=== PATIENT | female | born 1955 | race Caucasian/White ===

== ENCOUNTER 2023-01-11 02:29 | Emergency (ER) | payer MEDICARE, SELFPAY ==
[2023-01-11 02:33] VITALS: BP 198/94; PULSE 134; RESP 20; TEMP 36.4; O2SAT 100
[2023-01-11] MEDS: NACL 0.9% IRRIG BAG 1,000 ML 1000 ML IRRIGATION ×5 (04:07→06:19)
--- NOTE | 2023-01-11 04:15 | ED.GENADULT ---
HPI - General Adult General Chief complaint: Eye Problems Stated complaint: Super glue to left eye Time Seen by Provider: 01/11/23 02:54 History of Present Illness HPI narrative: This is 67-year-old female presenting to the ED w/ superglue in her eye. patient was Trying to put eyedrops in and grabbed the wrong bottle. Now she is having eye pain and blurry vision. Related Data Allergies Allergy/AdvReac Type Severity Reaction Status Date / Time No Known Allergies Allergy Verified 01/11/23 02:37 [facility] Past Medical History Medical History Diabetes Hypertension Social History Social History (Updated 01/11/23 @ 06:47 by Virgil Lizarraga MD) Social History: occasional alcohol, denies tobacco or drug use Exam Narrative: APPEARANCE: No apparent distress. Head: atraumatic. EYES: left eye has super glue over the eyelashes and inside the eye, there is scleral injection, a ring of dried glue around the edges of the cornea, IOP 20, no evidence of corneal abrasion on fluorescein stain, decreased visual acuity as compared to the right eye NOSE: Atraumatic NECK: Trachea midline RESPIRATORY: No increased rate of breathing CARDIOVASCULAR: RRR, ABDOMINAL: Non-distended MUSCULOSKELETAl: No obvious deformities NEURO: Alert. Moving 4/4 extremities SKIN:: Warm, dry. Normal color PSYCHIATRIC: Normal affect Course Vital Signs Vital signs: Vital Signs Temperature 97.5 F L 01/11/23 02:33 Pulse Rate 134 H 01/11/23 02:33 Respiratory Rate 20 01/11/23 02:33 Blood Pressure 198/94 H 01/11/23 02:33 Pulse Oximetry 100 01/11/23 02:33 Oxygen Delivery Room Air 01/11/23 02:33 Temperature 97.5 F L 01/11/23 02:33 Pulse Rate 134 H 01/11/23 02:33 Respiratory Rate 20 01/11/23 02:33 Blood Pressure 198/94 H 01/11/23 02:33 Pulse Oximetry 100 01/11/23 02:33 Oxygen Delivery Room Air 01/11/23 02:33 Procedures FB Removal Eye Foreign Body #1: Foreign Body Removal Date: 01/11/23 Time Out performed: Yes Location: eye (L) Topical anesthetic used: tetracaine Foreign body: other (superglue) Evidence of corneal penetration: No Technique: eye wash bottle, juni lens, NS and other (tweezers) Procedure performed under: direct visualization with magnification Post-procedure medication: ophthalmic antibiotic Patient tolerated procedure: well Complications: incomplete foreign body removal Medical Decision Making MDM Narrative Medical decision making narrative: -Presentation: 67-year-old female presenting ED after placing super glue in her eye. tetracaine used for anesthetic.eye was flushed flushed with copious amounts of normal saline Via Juni lensuntil it reached a normal pH. -DDX includes but is not limited to: Caustic burn, globe penetration, scleritis, conjunctivitis -Co-morbidities complicating care: hypertension diabetes -Social determinants of health: noncontributory -External Chart Review: none -Hx from independent Sources: none -Discussion of Management/Consultants: Dr. Villasenor - [facility] Opthomology -Independent interpretation of studies: fluorescein stain negative for abrasion, no Unique sign. IOP 20 within normal limit visual acuity is decreased as compared to the right eye Dx tests considered but not ordered: none -Procedures: foreign body removal of glue stuck over the cornea, eyelashes, and sclera -Interventions: 5 L normal saline flush -Shared decision making / Disposition: case was discussed with the [facility] credit counselor. The patient has been given follow-up at 9:30 a.m. on Thursday morning and the [facility] ophthalmology clinic. Patient will be placed on Vigamox, artificial tears and given pain control. Patient is agreeable to this plan -RX: Vigamox, artificial tears, Motrin, norco Vital Signs Vital Signs: Vital Signs Temperature 97.5 F L 01/11/
--- NOTE | 2023-01-11 04:31 | PC.NURSE ---
Second liter of normal saline irrigation started for left eye pH of 7.5
--- NOTE | 2023-01-11 05:02 | PC.NURSE ---
Third liter of normal saline irrigation started in left eye for pH of 8.0.
--- NOTE | 2023-01-11 05:48 | PC.NURSE ---
Fourth liter of normal saline irrigation started in left eye for pH of 7.5
--- NOTE | 2023-01-11 06:19 | PC.NURSE ---
Fifth liter of normal saline irrigation to left eye started for eye pH of 7.5
[2023-01-11 06:49] VITALS: BP 155/110; PULSE 67; RESP 16; O2SAT 100
== END 2023-01-11 07:05 | disposition home or self-care (01) ==
PROVIDERS: Emergency Provider Emergency Medicine
DX: T15.80XA Foreign body in other and multiple parts of external eye, unspecified eye, initial encounter (principal); E11.9 Type 2 diabetes mellitus without complications; I10 Essential (primary) hypertension
CPT/HCPCS: 65220; 99283; J7030

== ENCOUNTER 2024-08-09 17:04 | Emergency (ER) | payer MEDICARE, SELFPAY ==
[2024-08-09 17:10] VITALS: BP 132/68; PULSE 103; RESP 16; TEMP 36.6; O2SAT 100
--- NOTE | 2024-08-09 17:29 | ED.URI ---
HPI - URI/Sore Throat General Chief Complaint: Upper Respiratory Infection Stated Complaint: Sinus Time Seen by Provider: 08/09/24 17:15 Source: patient Mode of arrival: ambulatory Limitations: no limitations History of Present Illness HPI Narrative: Soo is a 69-year-old female patient presenting to the clinic today with complaints of sinus congestion, headache, slight sore throat, and cough. She reports the symptoms have been going on for 4 days. She denies any chest pain or shortness of breath. Is needing a COVID test- is scheduled for a heart catheterization this week MD elicited complaint: sore throat and nasal congestion Related Data Home Medications Medication Instructions Recorded Confirmed apixaban 5 mg tablet (Eliquis) 5 mg PO DAILY 08/09/24 08/09/24 icosapent ethyl 1 gram capsule 1 g PO DAILY 08/09/24 08/09/24 (Vascepa) insulin degludec 200 unit/mL (3 2 unit subcut DAILY 08/09/24 08/09/24 mL) subcutaneous pen (Tresiba FlexTouch U-200 insulin) losartan 100 mg tablet 100 mg PO DAILY 08/09/24 08/09/24 metformin 500 mg tablet,extended 1,000 mg PO BID 08/09/24 08/09/24 release 24 hr metoprolol tartrate 25 mg tablet 25 mg PO DAILY 08/09/24 08/09/24 semaglutide 0.25 mg or 0.5 mg (2 2 mg subcut WE 08/09/24 08/09/24 mg/3 mL) subcutaneous pen injector (Ozempic) Allergies Allergy/AdvReac Type Severity Reaction Status Date / Time lisinopril AdvReac Cough Verified 08/09/24 17:37 Review of Systems Review of Systems: Pertinent positives per HPI. Patient denies any fever, chills, rash, headache, visual changes, dizziness, cough, shortness of breath, chest pain, palpitations, nausea, vomiting, diarrhea, constipation, abdominal pain, or any urinary issues. [facility] Past Medical History Medical History Diabetes Hypertension Social History Social History Social History: occasional alcohol, denies tobacco or drug use Comments At the time of my signature, I reviewed and agree with the nursing past medical, surgical, social, and family history. There is no relevant family history pertinent to the patient complaint. Exam Narrative: General: Well-developed, well nourished, in no apparent distress Head: Normocephalic, atraumatic Eyes: Pupils equally round and reactive to light bilaterally, EOM intact, sclera and conjunctive clear, no discharge, lids normal Ears: TMs intact and congested, ear canals clear, no drainage, grossly hearing normal. Nose: Nares patent, clear nasal discharge, no inflammation, no sinus tenderness. Mouth: Oral pharynx without lesions or masses, good dentition, MMM. Neck: Supple, trachea midline, no enlargement of anterior or posterior cervical nodes, no thyroid masses or goiter palpable. Cardio: Regular rate and rhythm, s1 and s2 normal, no murmur appreciated. Resp: Clear to auscultation bilaterally, no rhonchi, rales, wheezing or rubs Course Course Emergency Course: Portions of this record may have been created with voice recognition software. Level of Care: Express Care Visit Vital Signs Vital signs: Vital Signs Temperature 36.6 C 08/09/24 17:10 Pulse Rate 103 H 08/09/24 17:10 Respiratory Rate 16 08/09/24 17:10 Blood Pressure 132/68 08/09/24 17:10 Pulse Oximetry 100 08/09/24 17:10 Oxygen Delivery Room Air 08/09/24 17:10 Temperature 36.6 C 08/09/24 17:10 Pulse Rate 103 H 08/09/24 17:10 Respiratory Rate 16 08/09/24 17:10 Blood Pressure 132/68 08/09/24 17:10 Pulse Oximetry 100 08/09/24 17:10 Oxygen Delivery Room Air 08/09/24 17:10 Vital signs reviewed MDM - URI/Sore Throat MDM Narrative Medical decision making narrative: At the time of visit patient is resting comfortably on the exam table. Patient appears to be nontoxic. Labs: COVID and influenza testing was performed. COVID testi
[2024-08-09 17:40] LABS: EDCOVIDSCREEN Positive (Negative)
[2024-08-09 17:41] LABS: EDINFLUASCREEN Negative (Negative); EDINFLUBSCREEN Negative (Negative)
== END 2024-08-09 17:40 | disposition home or self-care (01) ==
PROVIDERS: Emergency Provider Nurse Practitioner Family
DX: U07.1 COVID-19 (principal); E11.9 Type 2 diabetes mellitus without complications; I10 Essential (primary) hypertension
CPT/HCPCS: 87635; 87804; 99212; G0463

== ENCOUNTER 2025-05-07 12:11 | Emergency (ER) | payer MEDICARE, SELFPAY ==
--- NOTE | ~2025-05-07 | XR_ITS ---
Right Knee Technique: AP, lateral, and sunrise views were obtained. Clinical History: Injury Findings: There is an acute, oblique fracture the distal third of the femoral shaft, with posterior d isplacement of the distal fracture fragment by approximately 2.3 cm. Fracture is periprosthetic relat ed to the distal femoral component of knee arthroplasty hardware. Soft tissues are unremarkable. No j oint effusion is seen. Impression: Acute oblique fracture of the distal third of the femoral shaft, as detailed above, with periprosthet ic extension related to knee arthroplasty hardware. Reviewed, dictated and finalized at location M. Impression: Acute oblique fracture of the distal third of the femoral shaft, as detailed ab ove, with periprosthetic extension related to knee arthroplasty hardware.
[2025-05-07 11:59] VITALS: BP 169/75; PULSE 65; RESP 18; TEMP 36.4; O2SAT 97
--- NOTE | 2025-05-07 12:15 | ED_ITS ---
HPI - General Adult General Chief complaint: Extremity Injury, Lower Stated complaint: RLE injury History of Present Illness HPI narrative: 70-year-old female presented to the emergency department for evaluation for right knee pain. Patient reports she was walking down steps and missed a step and injured her right knee. Patient denies striking head denies any loss of consciousness. Patient does have history of bilateral knee replacements performed in 2017 at [place]. Related Data Home Medications ?Medication ?Instructions ?Recorded ?Confirmed ?Last Taken ?Type apixaban 5 mg tablet (Eliquis) 5 mg PO DAILY 08/09/24 08/09/24 Unknown History icosapent ethyl 1 gram capsule 1 g PO DAILY 08/09/24 08/09/24 Unknown History (Vascepa) insulin degludec 200 unit/mL (3 2 unit subcut DAILY 08/09/24 08/09/24 Unknown History mL) subcutaneous pen (Tresiba FlexTouch U-200 insulin) losartan 100 mg tablet 100 mg PO DAILY 08/09/24 08/09/24 Unknown History metformin 500 mg tablet,extended 1,000 mg PO BID 08/09/24 08/09/24 Unknown History release 24 hr metoprolol tartrate 25 mg tablet 25 mg PO DAILY 08/09/24 08/09/24 Unknown History semaglutide 0.25 mg or 0.5 mg (2 2 mg subcut WE 08/09/24 08/09/24 Unknown History mg/3 mL) subcutaneous pen injector (Ozempic) Allergies Allergy/AdvReac Type Severity Reaction Status Date / Time lisinopril AdvReac Cough Verified 08/09/24 17:37 Review of Systems 2 Review of Systems: All systems reviewed & are unremarkable except as noted in HPI and below PMFSH Past Medical History Medical History Diabetes Hypertension Social History Social History Social History: occasional alcohol, denies tobacco or drug use Exam 2 Narrative: APPEARANCE: Uncomfortable appearing HEAD: normocephalic, atraumatic. EYES: PERRLA/EOMI, conjunctivae clear. NOSE: Normal no drainage EARS:TMS clear with good light reflex. THROAT: Pharynx clear, no exudate. NECK: Supple. No adenopathy, no masses. RESPIRATORY: Airway patent, respirations nonlabored. Clear to auscultation bilaterally, no rales, rhonchi, wheezing. CARDIOVASCULAR: Regular rate and rhythm without murmurs rubs or gallops. ABDOMINAL: Soft, nontender, nondistended, normal bowel sounds MUSCULOSKELETAL: Tenderness to right knee with limited range of motion, no tenderness to right hip or lower extremity. NEURO: Alert. Cranial nerves II through XII intact. Good gait. Good coordination SKIN: Ecchymosis Course Vital Signs Vital signs: Vital Signs Temperature 97.5 F L 05/07/25 11:59 Pulse Rate 65 05/07/25 11:59 Respiratory Rate 18 05/07/25 11:59 Blood Pressure 169/75 H 05/07/25 11:59 Pulse Oximetry 97 05/07/25 11:59 Oxygen Delivery Room Air 05/07/25 11:59 Temperature 97.5 F L 05/07/25 11:59 Pulse Rate 60 05/07/25 13:16 Respiratory Rate 16 05/07/25 13:16 Blood Pressure 135/75 05/07/25 13:16 Pulse Oximetry 98 05/07/25 13:16 Oxygen Delivery Room Air 05/07/25 11:59 Medical Decision Making MDM Narrative Medical decision making narrative: 70-year-old female presenting to the emergency department for evaluation for right knee pain after having a ground level fall. Patient does have a displaced oblique fracture of the right knee involving her prior prosthetic. Is neurovascularly intact. Patient does have history of AFib is on amiodarone and does take Eliquis. Patient denies striking head denies loss conscious. Patient family were updated on the results of the workup and need for transfer to higher level of care due to the periprosthetic fracture. Patient was placed in a knee immobilizer for knee stability. Differential Diagnosis Differential Diagnosis: Femur fracture, knee contusion, knee dislocation, proximal tib-fib fracture Vital Signs Vital Signs: Vital Signs Temperature 97.5 F L 05/07/25 11:59 Pulse Rate 65 05/07/25 11:59 Respiratory Rate 18 05/07/25 11:59 Blood Pressure 169/75 H 05/07/25 11:59 Pulse Oximetry 97 05/07/25 11:59 Oxygen Delivery Room Air 05/07/25 11:59 Temperature 97.5 F L 05/07/25 11:59 Pulse Rate 60 05/07/25 13:16 Respiratory Rate 16 05/07/25 13:16 Blood Pressure 135/75 05/07/25 13:16 Pulse Oximetry 98 05/07/25 13:16 Oxygen Delivery Room Air 05/07/25 11:59 Lab Data Lab results reviewed: Yes I reviewed the patient's lab results. 05/07/25 12:39 05/07/25 12:39 Labs: Lab Results 05/07/25 05/07/25 Range/Units 12:39 12:40 WBC 8.5 (4.5-10.0) K/mm3 RBC 4.48 (4.2-5.4) M/mm3 Hgb 13.7 (12.0-15.0) g/dL Hct 40.7 (37.0-47.0) % MCV 90.8 (80-100) fl MCH 30.6 (26-34) pg MCHC 33.7 (32-36) g/dl RDW 12.2 (11.5-14.5) % Plt Count 225 (150-375) k/mm3 MPV 9.7 (7.4-10.4) fl Immature Gran % (Auto) 0.4 (0-0.5) % Neut % (Auto) 76.0 H (45.5-73.1) % Lymph % (Auto) 15.0 L (18.3-44.2) % [place] % (Auto) 6.9 (2.6-8.5) % Eos % (Auto) 1.1 (0-4.4) % Baso % (Auto) 0.6 (0.2-1.2) % Lymph # (Auto) 1.28 (0.9-3.2) K/mm3 [place] # (Auto) 0.6 (0.1-0.6) K/mm3 Eos # (Auto) 0.1 (0-0.3) K/mm3 Baso # (Auto) 0.1 (0.0-0.1) K/mm3 Abs Immat Gran (auto) 0.03 (0.00-0.031) K/mm3 Absolute Neuts (auto) 6.5 (1.3-6.7) K/mm3 Absolute Nucleated RBC 0.000 (0.0-0.012) K/mm3 Nucleated RBC % 0.0 (0.0-0.2) % PT 14.7 (11.1-14.7) Seconds INR 1.2 APTT 25.8 (22.3-36.8) Seconds Sodium 140 (137-145) mmol/L Potassium 4.5 (3.4-5.0) mmol/L Chloride 107 (98-107) mmol/L Carbon Dioxide 24 (22-30) mmol/L Anion Gap 9 (4-12) mmol/L BUN 35 H (7-17) mg/dL Creatinine 1.19 H (0.7-1.0) mg/dL Estim Creat Clear Calc 54 ml/min Estimated GFR 45 L (59 - ) Glucose 175 H (65-110) mg/dL Calcium 9.5 (8.4-10.2) mg/dL Total Bilirubin 0.8 (0.2-1.3) mg/dL AST 30 (14-36) U/L ALT 27 (6-35) U/L Alkaline Phosphatase 77 (38-126) U/L Total Protein 7.0 (6.3-8.2) g/dL Albumin 4.1 (3.5-5.1) g/dL Blood Type A Positive Antibody Screen Negative Imaging Data Radiologist's impression: Impressions Knee X-Ray 05/07/25 12:33 Impression: Acute oblique fracture of the distal third of the femoral shaft, as detailed above, with periprosthetic extension related to knee arthroplasty hardware. Critical Care Time Critical Care Time Critical Care Time: Yes Total Critical Care Time: 35 Discharge Plan Discharge Clinical Impression: Cleo-prosthetic femoral shaft fracture Patient Disposition: Acute Care Hospital Condition: Serious Patient Language: Upper Sorbian Prescriptions: No Action losartan 100 mg tablet 100 mg PO DAILY metformin 500 mg tablet extended release 24 hr 1,000 mg PO BID metoprolol tartrate 25 mg tablet 25 mg PO DAILY icosapent ethyl [Vascepa] 1 gram capsule 1 g PO DAILY Eliquis 5 mg tablet 5 mg PO DAILY insulin degludec [Tresiba FlexTouch U-200] 200 unit/mL (3 mL) insulin pen 2 unit SUBCUT DAILY Ozempic 0.25 mg or 0.5 mg (2 mg/3 mL) pen injector 2 mg SUBCUT WE moxifloxacin [Vigamox] 0.5 % drops 1 drp LEFT EYE QID 7 Days Qty: 3 0RF Artificial Tears (cmc) 1 % drops 1 drp EACH EYE QID PRN (Reason: eye irritation) Qty: 15 0RF hydrocodone-acetaminophen 5-325 mg tablet 1 tablet PO Q4H PRN (Reason: pain) Qty: 12 0RF Follow-up/Referrals: PHYSICIAN,SPA EXPERIENCE COORDINATOR [Primary Care Provider] -
--- OUTSIDE RECORDS SUMMARY | 2025-05-07 12:28 | XMS_ITS | Referral Summary ---
Author Organization [facility] Address [address] [place] [address] Care Team Providers Care Help Desk Support Name Role Phone Karely Meyers DO Unavailable [phone] Bella Bowles MD Primary Care Provider [phone] Encounters Date Type Department Care Team Description 04/26/2025 Orders Only [facility] Endocrinology Metabolism and Lipid [address] 2nd [address] [place] [address] Taniya Chisholm RMA Osteopenia, unspecified location (Primary Dx); Osteopenia after menopause 03/19/2025 Results Follow-Up [facility] Endocrinology Metabolism and Lipid [address] 2nd [address] [place] [address] Karely Meyers DO Hemoglobin A1c, Calcium, ionized, Comprehensive metabolic panel, Additional followed-up results: 8 02/27/2025 Telephone [facility] Endocrinology Metabolism and Lipid [address] 2[address] [place] [address] Taniya Chisholm RMA [facility] 02/17/2025 1:26 PM CDT - 02/17/2025 11:59 PM CDT Hospital Encounter [facility] [address] [place] [address] Screening mammogram, encounter for Discharge Disposition: Discharge to home or self care 02/10/2025 8:45 AM CDT Office Visit [facility] Endocrinology Metabolism and Lipid [address] [facility] [address] [place] [address] Karely Meyers DO Type 2 diabetes mellitus without complication, without long-term current use of insulin (HCC) (Primary Dx); Mixed hyperlipidemia; Osteopenia, unspecified location; Multinodular goiter; Essential hypertension; Other proteinuria; Neuropathy; Atrial fibrillation, unspecified type (HCC); Class 1 obesity due to excess calories with serious comorbidity and body mass index (BMI) of 34.0 to 34.9 in adult; Pheochromocytoma of left adrenal gland from Last 3 Months Allergies Active Allergy Reactions Criticality Noted Date Comments Lisinopril Itching,Swelling,Ang ioed elin High 03/26/2022 Swelling to face and eyes Other Itching Low 09/09/2024 Had itching following the skin prep used for cardiac cath. Medications cholecalciferol (VITAMIN D-3) 2,000 unit tabletIndication s:Prevention of Vitamin D Deficiency Take 1 tablet (2,000 Units total) by mouth 2 (two) times a day Active multivitamin tabletIndication s:Vitamin Deficiency Prevention Take 1 tablet by mouth 2 (two) times a day Active vitamin B complex capsuleIndicatio ns:Vitamin Deficiency Prevention Take 1 capsule by mouth every morning Active fluticasone propionate (FLONASE) 50 mcg/actuation nasal spray Administer 2 sprays into each nostril daily 16 g 5 1 Active Additional Information Patient not taking.Informant: Self, Reported on 02/10/2025 metFORMIN XR (GLUCOPHAGE XR) 500 mg 24 hr tablet TAKE 2 TABLETS(1000 MG) BY MOUTH TWICE DAILY 180 tablet 1 3 Active Additional Information Patient taking differently: 500 mg oral Daily with breakfast, Informant: Self, Reported on 02/10/2025 insulin degludec (TRESIBA) 200 unit/mL (3 mL) pen for injection Take 20 units every evening + 2 units of priming daily 9 mL 5 4 Active alpha lipoic acid 600 mg capsuleIndicatio ns:supplement Take 1 capsule (600 mg total) by mouth nightly Active blood-glucose sensor (Dexcom G7 Sensor) device continuous Active furosemide (LASIX) 20 mg tablet Take 1 tablet (20 mg total) by mouth daily 30 tablet 11 5 12/01/19 26 Active amiodarone (PACERONE) 200 mg tabletIndication s:Cardioversion of Atrial Fibrillation Take 1 tablet (200 mg total) by mouth daily 30 tablet 11 5 12/19/19 26 Active Farxiga 10 mg tablet Take 1 tablet (10 mg total) by mouth daily 30 tablet 11 5 Active losartan (COZAAR) 100 mg tablet Take 1 tablet (100 mg total) by mouth daily 90 tablet 1 5 01/02/20 26 Active blood glucose diagnostic ([employer] test strips) strip Check BS 3x per day 300 strip 3 5 Active icosapent ethyL (VASCEPA) 1 gram capsule Take 2 capsules (2 g total) by mouth 2 (two) times a day 360 capsule 1 5 Active apixaban (Eliquis) 5 mg tablet TAKE 1 TABLET(5 MG) BY MOUTH TWICE DAILY 180 tablet 3 5 Active evolocumab (Repatha SureClick) 140 mg/mL pen injector Inject 1 mL (140 mg total) under the skin every 2 (two) weeks 2 mL 5 5 Active Active Problems Problem Noted Date Diagnosed Date Heart failure with preserved ejection fraction 0 12/15/2024 Assessment & Plan (12/17/2024 11:23 AM NURSE MIDWIFE): HFrEF, per last TTE (06/2024), LVEF 50%, mild MR, mild to mod TR. -Hemodynamically stable, appears euvolemic on exam -Continue home Lasix 20 mg PO daily -Continue Farxiga 10 mg daily -Would benefit from addition of spironolactone which can be added outpatient -Strict I & Os, daily standing weights, 2G sodium diet, telemetry monitoring Assessment & Plan (12/16/2024 11:59 AM NURSE MIDWIFE): HFrEF, per last TTE (06/2024), LVEF 50%, mild MR, mild to mod TR. -appears euvolemic on exam -continue home Lasix 20 mg PO daily - consider SGLT2i, will crespo check -tele monitoring, strict I&Os, daily weights, 2 g Na diet Assessment & Plan (12/15/2024 11:03 AM NURSE MIDWIFE): HFrEF, per last TTE (06/2024), LVEF 50%, mild MR, mild to mod TR. -appears euvolemic on exam -continue home Lasix 20 mg PO daily -tele monitoring, strict I&Os, daily weights, 2 g Na diet A-fib 12/14/2024 Assessment & Plan (12/17/2024 11:25 AM NURSE MIDWIFE): History of A. Fib on Eliquis. Admitted for amiodarone load. -Admitting ECG SR with well controlled ventricular rates (50s), QTC 431 ms -Discontinued home metoprolol 25 mg BID -Started on amiodarone (first dose 12/14 PM)-pt has been in sinus rhythm until this morning -Currently in A. Fib, HR 90s on telemetry and AM EKG shows A. Fib, HR 83bpm, QTc 480ms -Continue Amiodarone 400 mg TID -Daily EKGs -Planning for DCCV on Thursday -Continue Eliquis 5 BID (no interrupted doses so will not need DANNI) -Continuous telemetry monitoring -Keep K > 4.0 & Mg > 2.0, replete as indicated Assessment & Plan (12/16/2024 12:00 PM NURSE MIDWIFE): Discussed the risks and benefits of amiodarone including toxicity with long-term use, as well as alternative modalities of rhythm control including catheter ablation and other anti rhythmic medications. She is agreeable to starting amiodarone which is a reasonable choice. - admitting ECG SR with well controlled ventricular rates (50s), QTC 431 ms - remains in SR with HR in upper 50s - continue Amiodarone 400 mg t.i.d. while inpatient, QTC remains within acceptable range - Continue Eliquis 5 b.i.d. - Discontinue metoprolol 25 b.i.d. - TSH, LFTs for baseline - ECG daily for 1st 3 days - strict tele monitoring Assessment & Plan (12/15/2024 11:05 AM NURSE MIDWIFE): Discussed the risks and benefits of amiodarone including toxicity with long-term use, as well as alternative modalities of rhythm control including catheter ablation and other anti rhythmic medications. She is agreeable to starting amiodarone which is a reasonable choice. - admitting ECG SR with well controlled ventricular rates (50s), QTC 431 ms - start Amiodarone 400 mg t.i.d. while inpatient - Continue Eliquis 5 b.i.d. - Discontinue metoprolol 25 b.i.d. - TSH, LFTs for baseline - ECG daily for 1st 3 days - strict tele monitoring Atrial fibrillation 09/27/2024 Encounter for follow-up in outpatient clinic Coronary artery disease invo lving [place] coronary artery of [place] heart without angina pectoris 07/23/2024 Abnormal stress test 06/30/2024 Left thyroid nodule 06/20/2024 Viral upper respiratory tract infection 05/05/20 Assessment & Plan (05/05/2023 10:51 PM CDT): Suspect she has a viral upper respiratory and enteritis infection as the etiology of her sx. Too late in course to test for COVID at this point. EKG and trop in the ED normal and given resolution of sx and her excellent exercise tolerance I do not think there is anything cardiac going on but discussed red flag sx in detail today. - Reassured her that her sx will cont to improve. - For diarrhea, pause metformin x1 week, cont loperamide prn, then resume metformin provided diarrhea has improved. Eye swelling 03/26/2022 Assessment & Plan (05/25/2022 10:23 PM CDT): After reviewing her photos, I am not convinced that this is angioedema, but to err on the side of safety we will stop TONY and substitute ARB. Lisinopril added to allergy list. She will call me KRISTI with any recurrent sx. Encounter for Medicare annual wellness exam 12/2019 Assessment & Plan (08/15/2022 9:26 AM CDT): - - Depression screen: PHQ Screening PHQ-2 Total Score (If total score is 3 or more points, staff should administer the PHQ-9): 0 - A1c: see DM - Lipids: see HLD - DEXA: normal 2020 - Colon cancer: normal path 02/2021,consider f/u 2030 - Mammogram: normal 08/2021 - Pap: not needed, s/p hysterectomy - Lung cancer: not needed - Hepatitis C: negative - HIV: not needed - Influenza: give today - Td/Tdap: UTD 2013 - Shingrix UTD - Pneumovax UTD 2017 - Prevnar: she would like to defer, discussed benefits/ limitations - COVID: UTD Routine health maintenance objectives discussed, including healthy diet, physical activity, and adequate calcium and vitamin D intake. Orders placed for any outstanding screening studies as noted. Physical exam performed as above.Routine annual labs, if needed, have been ordered and will be reviewed with patient when results available. Assessment & Plan (07/25/2021 10:55 AM CDT): - - Depression screen: PHQ Screening PHQ-2 Total Score (If total score is 3 or more points, staff should administer the PHQ-9): 0 PHQ-9 Total Score: 1 - A1c: see DM - Lipids: see HLD - DEXA: normal 2017, consider f/u in 2022 - Colon cancer: normal path 02/2021,consider f/u 2030 - Mammogram: normal 07/2020, due for f/u later this month - Pap: not needed, s/p hysterectomy - Lung cancer: not needed - Hepatitis C: negative - HIV: not needed - Influenza: rec - Td/Tdap: UTD 2013 - Shingrix UTD - Pneumovax UTD 2017 - Prevnar: she would like to defer, discussed benefits/ limitations - COVID: UTD Routine health maintenance objectives discussed, including healthy diet, physical activity, and adequate calcium and vitamin D intake. Orders placed for any outstanding screening studies as noted. Physical exam performed as above.Routine annual labs, if needed, have been ordered and will be reviewed with patient when results available. Assessment & Plan (07/25/2020 10:44 AM CDT): - - Depression screen: PHQ Screening PHQ-2 Total Score (If total score is 3 or more points, staff should administer the PHQ-9): 0 - A1c: see DM - Lipids: see HLD - DEXA: normal 2017, consider f/u in 2022 - Colon cancer: Last 08/2013, normal but rec 7 year f/u. Refer today - Mammogram: Due 07/2020 - Pap: not needed, s/p hysterectomy - Lung cancer: not needed - Hepatitis C: negative - HIV: not needed - Influenza: give today - Td/Tdap: UTD 2013 - Shingrix UTD - Pneumovax UTD 2017 - Prevnar: she would like to defer, discussed benefits/ limitations Routine health maintenance objectives discussed, including healthy diet, physical activity, and adequate calcium and vitamin D intake. Orders placed for any outstanding screening studies as noted. Physical exam performed as above.Routine annual labs, if needed, have been ordered and will be reviewed with patient when results available. Tinea pedis of both feet 07/25/2020 Assessment & Plan (07/25/2020 1:26 PM CDT): Terbinafine topical bid Counseling regarding advance care planning and goals of care 07/25/2020 Assessment & Plan (07/25/2020 1:27 PM CDT): Discussed for 5 min importance of POA and living will and what to consider when completing these documents. Chronic MARIMAR (middle ear effusion), left 07/25/20 20 Assessment & Plan (07/25/2021 10:50 PM CDT): Trial flonase 2 sprays each nostril every day. If no improvement, she will f/u with ENT Assessment & Plan (07/25/2020 1:34 PM CDT): No sx c/w acute otitis media. Intact TM - Rec Zyrtec x2 weeks. If no improvement, f/u with ENT Type 2 diabetes mellitus wit hout complication, without long-term current use of insulin 07/25/2020 Assessment & Plan (12/17/2024 11:24 AM NURSE MIDWIFE): Admission HgbA1C 7.3 -Continue Lantus 16 units in the evening plus LD SSI -Continue Farxiga 10 mg daily -Acucchecks -Carb consistent diet Assessment & Plan (12/16/2024 12:00 PM NURSE MIDWIFE): -On admission, HgbA1C 7.3 -Continue Lantus 16 units in the evening plus low-dose SSI -glucose check AC + HS -consider SGLT2i, will crespo check Assessment & Plan (12/15/2024 10:59 AM NURSE MIDWIFE): -On admission, HgbA1C 7.3 -Continue Lantus 16 units in the evening plus low-dose SSI -glucose check AC + HS Assessment & Plan (05/05/2023 10:52 PM CDT): Control is worsening. Medication regimen: cont Metformin XR 500mg bid given recent illness, but consider inc vs. Addition of GLP -1 at next appt. HbA1c Lab Results Component Value Date HGBA1C 7.0 05/05/2023 Microalbumin/Creatinine Lab Results Component Value Date MICROALBUR 16.0 12/15/2022 ACEi/ARB prescribed yes Statin prescribed no intolerant due to transaminitis Foot/extremity exam performed 07/2022, protective sensation intact. Retinopathy screening performed UTD Pt counseled regarding diet, physical activity, medication adherence Assessment & Plan (08/16/2022 9:12 PM CDT): Control is stable Medication regimen: Metformin XR 500mg bid HbA1c Lab Results Component Value Date HGBA1C 8.2 (H) 08/15/2022 Microalbumin/Creatinine Lab Results Component Value Date MICROALBUR <3.0 11/15/2019 ACEi/ARB prescribed yes Statin prescribed no intolerant due to transaminitis Foot/extremity exam performed 07/2022, protective sensation intact. Retinopathy screening performed UTD Pt counseled regarding diet, physical activity, medication adherence Assessment & Plan (07/25/2021 10:48 PM CDT): Control is stable Medication regimen: Metformin XR 500mg bid HbA1c Lab Results Component Value Date HGBA1C 6.6% 07/15/2021 Microalbumin/Creatinine Lab Results Component Value Date MICROALBUR <3.0 11/15/2019 ACEi/ARB prescribed yes Statin prescribed no intolerant due to transaminitis Foot/extremity exam performed 07/2021, protective sensation intact. Retinopathy screening performed due, 07/2020 Pt counseled regarding diet, physical activity, medication adherence Assessment & Plan (07/25/2020 1:36 PM CDT): Control is stable Medication regimen: Metformin XR 500mg bid HbA1c Lab Results Component Value Date HGBA1C 6.3 06/26/2020 Microalbumin/Creatinine Lab Results Component Value Date MICROALBUR <3.0 11/15/2019 ACEi/ARB prescribed yes Statin prescribed no intolerant due to transaminitis Foot/extremity exam performed 07/2020, protective sensation intact. Retinopathy screening performed due, 07/2020 Pt counseled regarding diet, physical activity, medication adherence Essential hypertension 07/25/2020 Assessment & Plan (12/17/2024 11:21 AM NURSE MIDWIFE): -Continue losartan 100 daily Assessment & Plan (12/16/2024 11:59 AM NURSE MIDWIFE): -continue Cozaar 100 daily Assessment & Plan (12/15/2024 10:57 AM NURSE MIDWIFE): -continue Cozaar 100 daily Assessment & Plan (08/16/2022 9:14 PM CDT): BP at goal <130/80 at home. - Current medication regimen: cont losartan 25mg every day - cont home BP monitoring - Counseled regarding lifestyle measures to control HTN including low salt diet rich in fruits and vegetables, limiting alcohol use, regular exercise, and weight loss of 5-10% if pt is obese. Assessment & Plan (05/25/2022 10:24 PM CDT): BP above goal <130/80. - Current medication regimen: start losartan 25mg every day - asked her to send home blood pressures - Counseled regarding lifestyle measures to control HTN including low salt diet rich in fruits and vegetables, limiting alcohol use, regular exercise, and weight loss of 5-10% if pt is obese. Assessment & Plan (07/25/2021 10:42 PM CDT): BP at goal <130/80. - Current medication regimen: amlodipine 5mg every day, lisinopril 5mg every day - Counseled regarding lifestyle measures to control HTN including low salt diet rich in fruits and vegetables, limiting alcohol use, regular exercise, and weight loss of 5-10% if pt is obese. Assessment & Plan (07/25/2020 1:36 PM CDT): BP at goal <130/80. - Current medication regimen: amlodipine 5mg every day, lisinopril 5mg every day - Counseled regarding lifestyle measures to control HTN including low salt diet rich in fruits and vegetables, limiting alcohol use, regular exercise, and weight loss of 5-10% if pt is obese. Mixed hyperlipidemia 07/25/2020 Assessment & Plan (08/16/2022 9:14 PM CDT): Lab Results Component Value Date CHOL 121 01/14/2022 CHOL 112 07/15/2021 CHOL 121 03/18/2021 Lab Results Component Value Date HDL 46 08/15/2022 HDL 43 01/14/2022 HDL 41 07/15/2021 Lab Results Component Value Date LDLCALC 50 08/15/2022 LDLCALC 44 01/14/2022 LDLCALC 31 07/15/2021 LDL 67 01/28/2017 LDL 97 10/26/2014 LDL 65 03/23/2014 LDLC 53 03/22/2020 LDLC 39 11/15/2019 LDLP 722 03/22/2020 LDLP 563 11/15/2019 Lab Results Component Value Date TRIG 266 (H) 08/15/2022 TRIG 170 (H) 01/14/2022 TRIG 200 (H) 07/15/2021 Intolerant of statins due to transaminitis. - Cont Cait Perdomo. - Counseled regarding diet changes to lower TGs Assessment & Plan (07/25/2021 10:43 PM CDT): Lab Results Component Value Date CHOL 112 07/15/2021 CHOL 121 03/18/2021 CHOL 113 11/12/2020 Lab Results Component Value Date HDL 41 07/15/2021 HDL 46 03/18/2021 HDL 46 11/12/2020 Lab Results Component Value Date LDLCALC 31 07/15/2021 LDLCALC 43 03/18/2021 LDLCALC 34 11/12/2020 LDL 67 01/28/2017 LDL 97 10/26/2014 LDL 65 03/23/2014 LDLC 53 03/22/2020 LDLC 39 11/15/2019 LDLP 722 03/22/2020 LDLP 563 11/15/2019 Lab Results Component Value Date TRIG 200 (H) 07/15/2021 TRIG 158 (H) 03/18/2021 TRIG 164 (H) 11/12/2020 Intolerant of statins due to transaminitis. - Cont Cait Perdomo. - Counseled regarding diet changes to lower TGs Assessment & Plan (07/25/2020 1:37 PM CDT): Last LDL at goal. Intolerant of statins due to transaminitis. - Cont Cait Perdomo Multiple thyroid nodules 07/25/2020 Assessment & Plan (08/16/2022 9:15 PM CDT): Euthyroid. Right thyroid nodule stable. Left thyroid nodule has increased in size by 33%. FNA repeated in 06/2020 and it was benign --> repeat u/s done showed increase in size in left thyroid nodule. She underwent FNA with benign cytology. - No further f/u needed Assessment & Plan (07/25/2021 10:48 PM CDT): Euthyroid. Right thyroid nodule stable. Left thyroid nodule has increased in size by 33%. FNA repeated in 06/2020 and it was benign --> repeat u/s done showed increase in size in left thyroid nodule. She underwent FNA yesterday and results are pending. - F/u with Dr. Meyers, next steps pending cytology Assessment & Plan (07/25/2020 1:39 PM CDT): Euthyroid. Last US with increase in size of L lower nodule, FNA 07/04 benign. - F/u with Dr. Meyers - Thyroid US in 1 year Resolved Problems Problem Noted Date Diagnosed Date Resolved Date Alcohol screening 07/25/2020 07/25/2020 Overview (07/25/2020): negative Immunizations Immunization Administration Dates Next Due Influenza, Quadrivalent, Hig h Dose, Preservative Free, Intrr 08/15/2022 Influenza, Quadrivalent, Spl it, Intramuscular 09/04/2016,09/04/2016 Influenza, Quadrivalent, Spl it, Preservative Free, Intramuscular 08/19/2018,08/19/2018,08/27/2017,08/27 Influenza, Trivalent, High D ose, Split, Preservative Free, Intramuscular 07/25/2020 Influenza, Trivalent, IM (MDV) 08/25/2013,2012 Influenza, Trivalent, Preser vative Free, Intramuscular 08/23/2005 Influenza, Unspecified 09/23/2024 Pfizer SARS-CoV-2 Monovalent Vaccination (12+ Yrs) PURPLE 06/23/2022,02/01/2021,01/11/2021,01/11 Tdap 03/23/2014 Social History Tobacco Use Types Packs/Day Years Used Date Smoking Tobacco: Former Cigarettes 0.3 5 1 972 - 1976 Passive Smoke Exposure: Past Smokeless Tobacco: Never Tobacco Cessation:Counseling Given: Not Answered Alcohol Use Standard Drinks/Week Comments Not Currently 0 (1 standard drink = 0.6 oz pur e alcohol) special occasions only [employer] Utilities Answer Date Recorded In the past 12 months has [employer], gas, oil, or water [employer] threatened to shut off services in your home? No 12/19/2024 Social Connection and Isolat ion Panel [NHANES] Answer Date Recorded In a typical week, how many times do you talk on the phone with family, friends, or neighbors? More than three times a week 12/19/2024 How often do you get togethe r with friends or relatives? Twice a week 12/19/2024 How often do you attend chur ch or latter day services? Never 12/19/2024 Do you belong to any clubs o r organizations such as temple groups, unions, fraternal or athletic groups, or school groups? No 12/19/2024 How often do you attend meet ings of the clubs or organizations you belong to? Never 12/19/2024 Are you , , di vorced, , never , or living with a partner? Never 12/19/2024 AUDIT-C Answer Date Recorded Q1: How often do you have a drink containing alc ohol? Monthly or less 10/27/2024 Q2: How many drinks containi ng alcohol do you have on a typical day when you are drinking? 1 or 2 10/27/2024 Q3: How often do you have si x or more drinks on one occasion? Never 10/27/2024 Overall Financial Resource Strain (CARDIA) Answe r Date Recorded How hard is it for you to pa y for the very basics like food, housing, medical care, and heating? Not very hard 12/19/2024 PHQ-2 Answer Date Recorded PHQ-2 Total Score (If total score is 3 or more points, staff should administer the PHQ-9) 0 08/15/2022 Hunger Vital Sign Answer Date Recorded Within the past 12 months, y ou worried that your food would run out before you got the money to buy more. Never true 12/19/19 25 Within the past 12 months, t he food you bought just didn't last and you didn't have money to get more. Never true 12/19/2024 PRAPARE - Transportation Answer Date Re corded In the past 12 months, has l ack of transportation kept you from medical appointments or from getting medications? No 11/24 In the past 12 months, has l ack of transportation kept you from meetings, work, or from getting things needed for daily living? No 12/19/2024 Housing Stability Vital Sign Answer Rosalio e Recorded In the last 12 months, was t here a time when you were not able to pay the mortgage or rent on time? No 12/19/2024 In the past 12 months, how m any times have you moved where you were living? 0 12/19/2024 At any time in the past 12 m [facility], were you homeless or living in a jail (including now)? No 12/19/2024 Personal Safety Answer Date Recorded Have you ever been in or are you currently in a harmful physical or emotional relationship or is someone making you feel afraid or unsafe? Denies 12/14/2024 Comments No Sex and Gender Information Value Date Recorded Sex Assigned at Not on file Legal Sex Female 2:14 AM NURSE MIDWIFE Gender Identity Not on file Sexual Orientation Not on file Last Filed Vital Signs Vital Sign Reading Time Taken Comments Blood Pressure 130/82 02/10/2025 8:44 AM CDT Pulse 61 02/10/2025 8:44 AM CDT Temperature 36.2 C (97.2 F) 02/10/2025 8:44 AM CDT Respiratory Rate 17 12/18/2024 7:36 AM NURSE MIDWIFE Oxygen Saturation 98% 02/10/2025 8:44 AM CDT Inhaled Oxygen Concentration - - Weight 112.5 kg (248 lb) 02/10/2025 8:44 AM CDT Height 177.8 cm (5' 10) 02/10/2025 8:44 AM CDT Body Mass Index 35.58 02/10/2025 8:44 AM CDT Plan of Treatment Not on file Procedures Procedure Name Priority Date/Time Associated Diagnosis Comments METANEPHRINES, FRACT, FREE, LC/MS/MS, PLASMA Routine 03/17/2025 9:44 AM CDT Pheochromocytoma of left adrenal gland HEMOGLOBIN A1C Routine 03/17/2025 9:43 AM CDT Type 2 diabetes mellitus without complication, without long-term current use of insulin (HCC) ALBUMIN CREATININE RATIO, URINE Routine 03/17/2025 9:41 AM CDT Type 2 diabetes mellitus without complication, without long-term current use of insulin (HCC) LIPOPROTEIN NMR Routine 03/17/2025 9:41 AM CDT Mixed hyperlipidemia PTH Routine 03/17/2025 9:41 AM CDT Osteopenia, unspecified location VITAMIN B12 Routine 03/17/2025 9:41 AM CDT Type 2 diabetes mellitus without complication, without long-term current use of insulin (HCC) VITAMIN D 25 HYDROXY Routine 03/17/2025 9:41 AM CDT Osteopenia, unspecified location TSH Routine 03/17/2025 9:41 AM CDT Multinodular goiter T4, FREE Routine 03/17/2025 9:41 AM CDT Multinodular goiter COMPREHENSIVE METABOLIC PANEL Routine 03/17/2025 9:41 AM CDT Type 2 diabetes mellitus without complication, without long-term current use of insulin (HCC) Mixed hyperlipidemia CALCIUM, IONIZED Routine 03/17/2025 9:41 AM CDT Osteopenia, unspecified location SCREENING MAMMOGRAM BILATERAL W HENRY Schedule Routine, Read Routine (OP Routine) 02/17/2025 1:39 PM CDT Screening mammogram, encounter for POCT GLUCOSE [id number] Routine 02/10/2025 8: 51 AM CDT Type 2 diabetes mellitus without complication, without long-term current use of insulin (HCC) LIPID PANEL Routine 12/15/2024 4:08 AM NURSE MIDWIFE HEPATITIS C ANTIBODY Routine 09/01/2024 10:30 AM CDT Hyperbilirubinemia DEXA AXIAL SKELETON BONE DENSITY 1 OR MORE SITES Schedule Routine, Read Routine (OP Routine) 04/24/2023 8:23 AM CDT Osteopenia, unspecified location COLONOSCOPY 03/11/2021 10:50 AM CDT from Last 3 Months or Most Recently Relevant to Health Maintenance Results * METANEPHRINES, FRACT, FREE, LC/MS/MS, PLASMA (03/17/2025 9:44 AM CDT) Normetanephrine , Pl 53.9 0.0 - 285.2 pg/mL [facility] - 01 Metanephrine, Pl <25.0 0.0 - 88.0 pg/mL [facility] - 01 Plasma 03/17/2025 9:44 AM CDT 03/17/2025 Narrative [facility] - 03/27/2025 7:08 AM CDT Test(s) 687319-Hkxznayabrddjpk, Pl; 617247-Gmipvkwqotha, Pl was developed and its performance characteristics determined by [facility]. It has not been cleared or approved by the Food and Drug Administration. Performed at: [address] [id number] Registered Midwife: Sandy Hogan MD, Phone: [phone] [facility] [employer] LAB BLOOD ORDERABLES Fi nal Result Performing Organization Address [facility] de Phone Number [facility] * (ABNORMAL) Hemoglobin A1c (03/17/2025 9:43 AM CDT) Hgb A1C 6.2(H) 4.8 - 5.6 % [facility] - Comment: Prediabetes: 5.7 - 6.4 Diabetes: >6.4 Glycemic control for adults with diabetes: <7.0 Blood 03/17/2025 9:43 AM CDT 03/17/2025 Narrative [facility] - 03/18/2025 7:09 AM CDT Performed at: [address] [id number] Registered Midwife: Devin Salazar PhD, Phone: [phone] Karely Meyers LAB BLOOD ORDERABLES Fi nal Result Performing Organization Address [facility] de Phone Number [facility] * Calcium, ionized (03/17/2025 9:41 AM CDT) Calcium, Ionized, Serum 5.1 4.5 - 5.6 mg/dL [facility] - Blood 03/17/2025 9:41 AM CDT 03/17/2025 Narrative [facility] - 03/18/2025 3:09 PM CDT Performed at: [address] [place] [id number] Registered Midwife: Devin Salazar PhD, Phone: [phone] Karely Meyers DO LAB BLOOD ORDERABLES Fi nal Result Performing Organization Address [facility] Co de Phone Number [facility] - * Albumin Creatinine Ratio, Urine (03/17/2025 9:41 AM CDT) Creatinine ur 14.5 Not Estab. mg/dL [facility] - 01 Microalbumin, ur <3.0 Not Estab. ug/mL [facility] - 01 Microalbumin/cre at ratio <21 0 - 29 mg/g creat [facility] - 01 Comment: Normal: 0 - 29 Moderately increased: 30 - 300 Severely increased: >300 Urine 03/17/2025 9:41 AM CDT 03/17/2025 Narrative [facility] - 03/18/2025 9:10 AM CDT Performed at: [address] [place] [address] Registered Midwife: Devin Salazar PhD, Phone: [phone] Karely Meyers LAB URINE ORDERABLES Fi nal Result Performing Organization Address [facility] de Phone Number [facility] - * (ABNORMAL) Lipoprotein NMR (03/17/2025 9:41 AM CDT) LDL-P 1,141(H) <1,000 nmol/L [facility] - 01 Comment: Low < 1000 Moderate 1000 - 1299 Borderline-High 1300 - 1599 High 1600 - 2000 Very High > 2000 LDL-C (NIH Calc) 78 0 - 99 mg/dL [facility] - 01 Comment: Optimal < 100 Above optimal 100 - 129 Borderline 130 - 159 High 160 - 189 Very high > 189 HDL-C 48 >39 mg/dL [facility] - 01 Triglycerides 132 0 - 149 mg/dL [facility] - 01 Cholesterol, Total 149 100 - 199 mg/dL [facility] - 01 HDL, total particle 34.3 >=30.5 umol/L [facility] - 01 Small LDL-P 583(H) <=527 nmol/L [facility] - 01 LDL Size 20.9 >20.5 nm [facility] - 01 Comment: INTERPRETATIVE INFORMATION PARTICLE CONCENTRATION AND SIZE <--Lower CVD Risk Higher CVD Risk--> LDL AND HDL PARTICLES Percentile in Reference Population HDL-P (total) High 75th 50th 25th Low >34.9 34.9 30.5 26.7 <26.7 Small LDL-P Low 25th 50th 75th High <117 117 527 839 >839 LDL Size <-Large (Pattern A)-> <-Small (Pattern B)-> 23.0 20.6 20.5 19.0 Small LDL-P and LDL Size are associated with CVD risk, but not after LDL-P is taken into account. LP-IR Score 44 <=45 [facility] - 01 Comment: INSULIN RESISTANCE MARKER <--Insulin Sensitive Insulin Resistant--> Percentile in Reference Population Insulin Resistance Score LP-IR Score Low 25th 50th 75th High <27 27 45 63 >63 LP-IR Score is inaccurate if patient is non-fasting. The LP-IR score is a laboratory developed index that has been associated with insulin resistance and diabetes risk and should be used as one component of a physician's clinical assessment. Blood 03/17/2025 9:41 AM CDT 03/17/2025 Narrative [facility] - 03/19/2025 3:08 PM CDT Test(s) [id number]-JJB-F; 939563-LTP-I; 389121-Bwlzlbtiawsqt; 975404- Cholesterol, Total; 925657-THV-R (Total); 916939-Auguw LDL-P; 049770- LDL Size; 995498-BP-AG Score was developed and its performance characteristics determined by [facility]. It has not been cleared or approved by the Food and Drug Administration. Performed at: [facility] [id number] Registered Midwife: Sandy Hogan MD, Phone: [phone] Karely Meyers DO LAB BLOOD ORDERABLES Fi nal Result Performing Organization Address [facility] Co de Phone Number [facility]DCRP - * Vitamin D 25 hydroxy (03/17/2025 9:41 AM CDT) Vitamin D, 25-Hydroxy 45.8 30.0 - 100.0 ng/mL [facility] - 01 Comment: Vitamin D deficiency has been defined by the [place] of Medicine and an Endocrine Society practice guideline as a level of serum 25-OH vitamin D less than 20 ng/mL (1,2). The Endocrine Society went on to further define vitamin D insufficiency as a level between 21 and 29 ng/mL (2). 1. IOM ([place] of Medicine). 2010. Dietary reference intakes for calcium and D. [place]: The National Academies Press. 2. Irma MF, Demetrio CARPIO, Swetha SCHAEFER, et al. Evaluation, treatment, and prevention of vitamin D deficiency: an Endocrine Society clinical practice guideline. JCEM. 2010; 96(7):1911-30. Blood 03/17/2025 9:41 AM CDT 03/17/2025 Narrative [facility] - 03/18/2025 7:09 AM CDT Performed at: [facility] [id number] Registered Midwife: Devin Salazar PhD, Phone: [phone] Karely Anapiyush Meyers DO LAB BLOOD ORDERABLES Fi nal Result Performing Organization Address City/[facility]/ZIP Co de Phone Number [facility] - 01 * TSH (03/17/2025 9:41 AM CDT) TSH 3.070 0.450 - 4.500 uIU/mL [facility] - 01 Blood 03/17/2025 9:41 AM CDT 03/17/2025 Narrative [facility] - 03/18/2025 7:09 AM CDT Performed at: [address] [id number] Registered Midwife: Devin Salazar PhD, Phone: [phone] Karely Meyers DO LAB BLOOD ORDERABLES Fi nal Result Performing Organization Address [facility] de Phone Number [facility] - 01 * T4, free (03/17/2025 9:41 AM CDT) T4,Free(Direct) 1.39 0.82 - 1.77 ng/dL [facility] - 01 Blood 03/17/2025 9:41 AM CDT 03/17/2025 Narrative [facility] - 03/18/2025 7:09 AM CDT Performed at: [address] [id number] Registered Midwife: Devin Salazar PhD, Phone: [phone] Karely Meyers DO LAB BLOOD ORDERABLES Fi nal Result Performing Organization Address [facility] Phone Number [facility] - 01 * PTH (03/17/2025 9:41 AM CDT) Pathologist [facility] PTH Intact 19 15 - 65 pg/mL [facility] 02 Blood 03/17/2025 9:41 AM CDT 03/17/2025 Narrative [facility] - 03/19/2025 3:08 PM CDT Performed at: [address] [id number] Registered Midwife: Devin Salazar PhD, Phone: [phone] us Karely Meyers DO LAB BLOOD ORDERABLES Fi nal Result Performing Organization Address [facility] Co de Phone Number [facility] PHYLLIS 02 * Vitamin B12 (03/17/2025 9:41 AM CDT) Pathologist [facility] Vitamin B12 700 232 - 1,245 pg/mL [facility] - 01 Blood 03/17/2025 9:41 AM CDT 03/17/2025 Narrative [facility] - 03/18/2025 7:09 AM CDT Performed at: [address] [place] [id number] Registered Midwife: Devin Salazar PhD, Phone: [phone] us Karely Meyers DO LAB BLOOD ORDERABLES Fi nal Result [facility] - 01 * (ABNORMAL) Comprehensive metabolic panel (03/17/2025 9:41 AM CDT) Pathologist [facility] Glucose 114(H) 70 - 99 mg/dL [facility] - 01 BUN 34(H) 8 - 27 mg/dL [facility] - 01 Creatinine, Serum 1.32(H) 0.57 - 1.00 mg/dL [facility] - 01 eGFR 43(L) >59 mL/min/1.7 3 [facility] - 01 BUN/creat ratio 26 12 - 28 [facility] - 01 Sodium 138 134 - 144 mmol/L [facility] - 01 Potassium, sr 4.9 3.5 - 5.2 mmol/L [facility] - 01 Chloride 100 96 - 106 mmol/L [facility] - 01 CO2 23 20 - 29 mmol/L [facility] - 01 Calcium 9.9 8.7 - 10.3 mg/dL [facility] - 01 Protein, sr 6.8 6.0 - 8.5 g/dL [facility] - 01 Albumin 4.3 3.8 - 4.8 g/dL [facility] - 01 Globulin, Total 2.5 1.5 - 4.5 g/dL [facility] - 01 Bilirubin, Total 0.8 0.0 - 1.2 mg/dL [facility] - 01 Alk phos 84 44 - 121 IU/L [facility] - 01 AST 24 0 - 40 IU/L [facility] - 01 ALT 24 0 - 32 IU/L [facility] - 01 Blood 03/17/2025 9:41 AM CDT 03/17/2025 Narrative [facility] - 03/18/2025 7:09 AM CDT Performed at: [address] [id number] Registered Midwife: Devin Salazar PhD, Phone: [phone] Karely Meyers DO LAB BLOOD ORDERABLES Fi nal Result JULI [facility] - 01 * Screening Mammogram Bilateral W Henry (02/17/2025 1:39 PM CDT) Anatomical Region Laterality Modality Breast Bilateral Mammography Narrative 02/20/2025 2:39 PM CDT Mammogram Technique: Bilateral Digital Breast Tomosynthesis, Bilateral C-view 2D Screening mammogram. Views obtained: bilateral craniocaudal and bilateral mediolateral oblique. Computer Aided Detection was performed. Mammogram Findings: The present examination has been compared to prior imaging studies performed at [facility] on 08/26/2021, 12/23/2022 and 01/29/2024. There are scattered areas of fibroglandular density. There is no suspicious abnormality in either breast. Impression: There is no mammographic evidence of malignancy. Annual screening mammography is recommended. OVERALL FINAL ASSESSMENT: BI-RADS CATEGORY 1: Negative. Procedure Note Freida Ortiz MD - 02/20/2025 Mammogram Technique: Bilateral Digital Breast Tomosynthesis, Bilateral C-view 2D Screening mammogram. Views obtained: bilateral craniocaudal and bilateral mediolateral oblique. Computer Aided Detection was performed. Mammogram Findings: The present examination has been compared to prior imaging studies performed at [facility] on 08/26/2021, 12/23/2022 and 01/29/2024. There are scattered areas of fibroglandular density. There is no suspicious abnormality in either breast. Impression: There is no mammographic evidence of malignancy. Annual screening mammography is recommended. OVERALL FINAL ASSESSMENT: BI-RADS CATEGORY 1: Negative. us Self Screening Mammogram IMG MAMMO PROCEDURES Fi nal Result * POCT glucose (02/10/2025 8:51 AM CDT) Glucose Blood, POC 122 mg/dL Blood 02/10/2025 8:51 AM CDT Karely Ana Luigi DO POINT OF CARE TEST CORAL CURIEL Final Result * Lipid panel (12/15/2024 4:08 AM NURSE MIDWIFE) Cholesterol 122 30 - 199 mg/dL Comment: Interpretive Data Ages < or = 19 years Acceptable: <170 mg/dL Borderline high: 170-199 mg/dL High: >or= 200 mg/dL Ages > or = 20 years Desirable: <200 mg/dL Borderline high: 200-239 mg/dL High: >or= 240 mg/dL Literature References: 1. Expert Panel on Integrated Guidelines for Cardiovascular Health and Risk Reduction in Children and Adolescents. Pediatrics 2011;128:S213 2. NCEP Expert Panel. Circulation 2004;110:227 Current Interpretive Data was last revised on 2018. Triglycerides 127 <=149 mg/dL [facility] Comment: Interpretive Data Ages < or = 9 years Acceptable: <75 mg/dL Borderline high: 75-99 mg/dL High: >or= 100 mg/dL Ages 10 to 20 years Acceptable: <90 mg/dL Borderline high: 90-129 mg/dL High: >or= 130 mg/dL Ages > or = 20 years Desirable: <150 mg/dL Borderline high: 150-199 mg/dL High: 200-499 mg/dL Very high: >or= 499 mg/dL Literature References: 1. Expert Panel on Integrated Guidelines for Cardiovascular Health and Risk Reduction in Children and Adolescents. Pediatrics 2011;128:S213 2. NCEP Expert Panel. Circulation 2004;110:227 Current Interpretive Data was last revised on 2018. HDL 42 >=40 mg/dL [facility] Comment: Interpretive Data Ages < or = 19 years Acceptable: >45 mg/dL Borderline low: 40-45 mg/dL Low: <40 mg/dL Ages > or = 20 years Desirable: >or= 60 mg/dL Low: <40 mg/dL Literature References: 1. Expert Panel on Integrated Guidelines for Cardiovascular Health and Risk Reduction in Children and Adolescents. Pediatrics 2011;128:S213 2. NCEP Expert Panel. Circulation 2004;110:227 Current Interpretive Data was last revised on 2018. LDL, calculated 57 <=129 mg/dL [facility] Comment: Interpretive Data Ages < or = 19 years Acceptable: <110 mg/dL Borderline high: 110-129 mg/dL High: >or= 130 mg/dL Ages > or = 20 years Optimal: <100 mg/dL Near optimal: 100-129 mg/dL Borderline high: 130-159 mg/dL High: >160 mg/dL Calculated using the Porter LDL-C estimating equation. This equation was implemented on 2024. Prior to this date LDL-C was estimated using the Friedewald equation. Literature References: 1. Expert Panel on Integrated Guidelines for Cardiovascular Health and Risk Reduction in Children and Adolescents. Pediatrics 2011;128:S213 2. NCEP Expert Panel. Circulation 2004;110:227 3. Porter Kuhn et al. ROSENDO Cardiol. 2019March 23;5(5):540-548. doi: 10.1001/jamacardio.2020.0013 Current Interpretive Data was last revised on 2024. Non-HDL Cholesterol 80 mg/dL [facility] Comment: Interpretive Data Ages < or = 19 years Acceptable: <120 mg/dL Borderline high: 120-144 mg/dL High: >145 mg/dL Ages > or = 20 years When triglycerides are >200 mg/dL, Non-HDL cholesterol is a secondary target of therapy with treatment goals that are 30 mg/dL greater than the LDL cholesterol target. Literature References: 1. Expert Panel on Integrated Guidelines for Cardiovascular Health and Risk Reduction in Children and Adolescents. Pediatrics 2011;128:S213 2. NCEP Expert Panel. Circulation 2004;110:227 Current Interpretive Data was last revised on 2018. Chol/HDL ratio 3 [facility] Blood 12/15/2024 4:08 AM NURSE MIDWIFE 12/15/2024 4:35 AM NURSE MIDWIFE us Andreas Cerda MD LAB BLOOD ORDERABLES Final Res ult [facility] Department [place] [address] * Hepatitis C antibody Blood (09/01/2024 10:30 AM CDT) Hep C Ab Non Reactive Non Reactive [facility] - 01 Comment: HCV antibody alone does not differentiate between previously resolved infection and active infection. Equivocal and Reactive HCV antibody results should be followed up with an HCV RNA test to support the diagnosis of active HCV infection. Blood 09/01/2024 10:3 0 AM CDT 09/01/2024 Narrative [facility] - 09/02/2024 7:11 AM CDT Performed at: [address] [place] [id number] Registered Midwife: Devin Salazar PhD, Phone: [phone] Karely Meyers DO LAB MICROBIOLOGY - GENE RAL ORDERABLES Final Result Performing Organization Address City/[facility]/ZIP Co de Phone Number [facility] - * Dexa Axial Skeleton Bone Density 1 or 2 Site (04/24/2023 8:23 AM CDT) Anatomical Region Laterality Modality Body N/A Radiographic Elissa ging Narrative 04/26/2023 8:36 PM CDT Patient Name: Felicity Phan Date of : 1955 Date of scan: 04/24/2023 Bone mineral density was performed on a [employer] Discovery Densitometer. Based on machine cross-calibration and precision studies the least significant changes of this densitometer is 0.024 g/cm2 at the spine, 0.020 g/cm2 at the total proximal femur, and 0.014g/cm2 at the forearm. HISTORY: This is a 68 y.o. postmenopausal female. She reports that she quit smoking about 46 years ago. Her smoking use included cigarettes. She has a 1.25 pack-year smoking history. She has never used smokeless tobacco. Currently on treatment with calcium and vitamin D. INDICATIONS: Menopause status. FINDINGS: BONE MINERAL DENSITY OF THE LUMBAR SPINE Bone Mineral Density (BMD) of the lumbar spine was measured from L2-L4 and the average density was calculated to be 1.366 gm/cm2. This corresponds to a T-score (standard deviations from the mean of young adults) of 2.6. When compared to the previous study of 12/13/2020 there has been a 0.042 gm/cm (3.2%) increase in bone density that is considered significant. BONE MINERAL DENSITY OF THE PROXIMAL FEMUR Bone Mineral Density (BMD) of the left hip total was found to be 1.044 gm/cm2. This corresponds to a T-score standard deviations from the mean of young adults of 0.8. Femoral neck is 0.733 gm/cm2 with a T-score (standard deviations from the mean of young adults) of -1.0. When compared to the previous study of 12/13/2020 there has been a 0.024 gm/cm (2.4%) increase in bone density that is considered significant. SUMMARY: Bone mineral density is near the young adult normal mean with no increased risk for fracture. There has been a significant increase in bone density since previous measurement. L1 excluded from bone mineral density analysis of the lumbar spine because of bone density being more than 1 standard deviation discrepant relative to one adjacent vertebra. Clinical correlation is recommended. ADDITIONAL COMMENTS: Postmenopausal Women and Men Over 50: Diagnostic criteria: Osteoporosis: BMD at or below -2.5 T-score; Osteopenia (low bone mass): BMD between -1.0 and -2.5 T-score. If the patient has a history of a fragility fracture, a fracture that occurred with trauma equivalent to a fall from a standing position or less, then the diagnosis is osteoporosis regardless of bone density. The history and data sections of the bone mineral density scan were prepared by Mera Knight) RONNIE who is accredited by the International Society of Clinical Densitometry. The overall patient assessment and scan interpretation were performed by Demetrius Arora M.D. who is certified by the International Society of Clinical Densitometry. [id number] us Karely Meyers DO IMG DXA PROCEDURES Sonja l Result * COLONOSCOPY (03/11/2021 10:50 AM CDT) Anatomical Region Laterality Modality Other Narrative Procedure Note Jeremiah Grande MD - 03/11/2021 10:50 AM CDT [facility] END[facility] Patient Name: Felicity Phan Procedure Date: 03/11/2021 10:50 AM Date of : 1955 Admit Type: Outpatient Age: 66 Gender: Female Attending MD: Jeremiah Grande M.D. Room: [facility] ENDOSCOPY ROOM 8 Note Status: Finalized Procedure: Colonoscopy Indications: Screening for colorectal malignant neoplasm -normal colonoscopy 2012, personal history of uterinecancer, advised to have repeat colonoscopy at 5 years.Denies any symptoms. Referring MD: Beth Hood M.D. Providers: Jeremiah Grande M.D. Medicines: Monitored Anesthesia Care Complications: No immediate complications. Estimated Blood Loss: Estimated blood loss was minimal. Procedure: Pre-Anesthesia Assessment: - The risks and benefits of the procedure and the sedation options and risks were discussed with the patient. All questions were answered and informed consent was obtained. - Immediately prior to administration ofmedications, the patient was re-assessed for adequacy to receive sedatives. - Assessment per Anesthesia The benefits, risks and alternatives of theprocedure and sedation were discussed and informed consentwas obtained. All questions were answered. Please referto the signed informed consent document in the medical record. The scope was passed under direct vision.The Colonoscope was introduced through the anus and advanced to the terminal ileum. The colonoscopy was performed without difficulty. The patient tolerated the procedure well. The quality of the bowel preparation was adequate. The quality of the bowel preparation was evaluated using the BBPS (BostonBowel Preparation Scale) with scores of: Right Colon = 2 (minor amount of residual staining, small fragmentsof stool and/or opaque liquid, but mucosa seen well), Transverse Colon = 3 (entire mucosa seen well withno residual staining, small fragments of stool oropaque liquid) and Left Colon = 2 (minor amount ofresidual staining, small fragments of stool and/or opaque liquid, but mucosa seen well). The total BBPS score equals 7. The bowel preparation used was Miralax. Findings: Skin tags were found on perianal exam. The terminal ileum appeared normal. A 4 mm polyp was found in the descending colon. The polyp wassessile. The polyp was removed with a cold snare. Resection and retrieval were complete. The exam was otherwise without abnormality on direct and retroflexion views. Impression: - One 4 mm polyp in the descending colon, removedwith a cold snare. Resected and retrieved. - The examined portion of the ileum was normal. - The examination was otherwise normal on directand retroflexion views. - Benign perianal skin tags found on perianalexam. Recommendation: - Await pathology results. - Repeat colonoscopy for surveillance based on pathology results. - Return to referring physician as previously scheduled. Attending Participation: I personally performed the entire procedure. Electronically signed by Jeremiah Grande MD Jeremiah Grande M.D. 03/11/2021 11:19:46 AM . Number of Addenda: 0 Note Initiated On: 03/11/2021 10:50 AM Recognized by the [place] [employer] for promoting quality in endoscopy us Jeremiah Mejia MD ENDOSCOPY PROCEDURES Final Res ult from Last 3 Months or Most Recently Relevant to Health Maintenance Insurance MEDICARE [facility] MEDICARE SUPPLEMENT [facility] MEDICARE [facility] Address: [address] [address] [place] [address] [facility]ICARE [facility] MEDICARE [employer] MEDICARE SUPPLEMENT MEDICARE [facility] Advance Directives For more information, please contact: [phone] Documents on File Type Date Recorded Patient School Occupational Therapist Expl anation ADVANCE DIRECTIVE 09/21/2024 10:52 AM [facility] [employer] OPERATOR-MEDICAL Power of Clearance Rep 09/09/2024 8:49 AM * Full Code (Latest Code Status on File) Date Activated Date Inactivated Comments 12/14/2024 5:47 PM 12/18/2024 3:28 PM * Full Code Date Activated Date Inactivated Comments 08/26/2024 7:51 AM 08/27/2024 4:32 AM * Full Code Date Activated Date Inactivated Comments 03/11/2021 9:54 AM 03/11/2021 4:22 PM Care Teams Help Desk Support Relationship Specialty Start Date End Date Bella Bowles MD [address] [address] PCP - General Geriatric Medicine 12/30/23 Karely Meyers DO [address] [facility] [address] [place] [address] Consulting Physician Endocrinology Diabetes & Metabolism 08/30/19
--- OUTSIDE RECORDS SUMMARY | 2025-05-07 12:28 | XMS_ITS | Clinical Summary ---
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 Gender Identity Not on file Sexual Orientation Not on file Plan of Treatment Health Maintenance Due Date Last Done Comments DEXA Bone Density 1955 Hepatitis C Virus (HCV) Screening 1955 TdaP Immunization 1955 Colonoscopy 1998 Colorectal Cancer Screening 1998 Cologuard 2003 Immunochemical Fecal Occult Blood 2003 Mammogram 2003 Pneumococcal Immunization (50+ years) (1 of 1 - PCV) 2003 Zoster Immunization (1 of 2) 2003 Influenza Immunization (#1) 07/24/202407/25, 08/27/2017, 09/04/2016, Additional history exists SARS-COV-2 Immunization ( - 2023-25 season) 2024 Respiratory Syncytial Virus (RSV) Immunization (Adult) (1 - 1-dose 75+ series) 02/25/2028 Hepatitis B Immunization Aged Out No longer eligible based on patient's age to complete this topic Meningococcal Immunization (ACWY) Aged Out No longer eligible based on patient's age to complete this topic Rotavirus Immunization Aged Out No lo nger eligible based on patient's age to complete this topic
--- OUTSIDE RECORDS SUMMARY | 2025-05-07 12:28 | XMS_ITS | Encounter Summary ---
Author Organization [facility] Address [address] [place] [address] Phone Care Team Providers Care Bag Press Operator Name Role Phone Karely Meyers DO Primary Care Provider Beth Hood MD Primary Care Provider Karely Meyers DO Unavailable [phone] Bella Bowles MD Primary Care Provider [phone] Kendra Sánchez [facility] Unavailable [phone] Encounter Details Date Type Department Care Team (Latest Contact Info) Description 02/11/2017 Orders Only [facility] EML Scanning, Provider Social History Tobacco Use Types Packs/Day Years Used Date Smoking Tobacco: Never Assessed Comments Unknown Sex and Gender Information Value Date Recorded Sex Assigned at Not on file Legal Sex Female 2:14 AM TECHNICAL SOLUTION ARCHITECT Gender Identity Not on file Sexual Orientation Not on file documented as of this encounter Plan of Treatment Not on file documented as of this encounter Procedures Procedure Name Priority Date/Time Associated Diagnosis Comments SCAN - LABS 02/11/2017 documented in this encounter Results * SCAN - LABS (02/11/2017) us Provider Scanning Final Result documented in this encounter Visit Diagnoses Not on filedocumented in this encounter Additional Health Concerns Infection Onset Date Last Indicated Resolved Time COVID19 08/09/2024 08/09/2024 08/19/2024 3:07 AM CDT Ring Surveillance Comment:[id number] C. auris This flag is used to identify patients who are in house being monitored by Infection Prevention. If a patient discharges before a swab is collected and returns to hospital within 7 days, please reach out to IP to order a surveillance swab. Patient does NOT need isolation, patient can travel off the floor. 12/18/2024 12/18/20242024 3:07 AM TECHNICAL SOLUTION ARCHITECT documented as of this encounter Care Teams Bag Press Operator Relationship Specialty Start Date End Date Karely Meyers DO PCP - General 01/14/17 05/27/20 Beth Hood MD [address] [place] [address] PCP - General Internal Medicine 05/28/20 12/29/23 Bella Bowles MD [address] [place] [address] PCP - General Geriatric Medicine 12/30/23 Karely Meyers DO [address] [facility] [address] [place] [address] Consulting Physician Endocrinology Diabetes & Metabolism 08/30/19 Kendra Sánchez LCSW [address] [facility] ([facility]) Mailstop [phone] [place] [address] SHOP Outpatient Central Office Operator 12/19/24 01/16/25 documented as of this encounter
--- OUTSIDE RECORDS SUMMARY | 2025-05-07 12:28 | XMS_ITS | Encounter Summary ---
Author Organization [facility] Address [address] [place] [address] Care Team Providers Care Candy Cooker Helper Name Role Phone Beth Hood MD Primary Care Provider Karely Meyers DO Unavailable [phone] Bella Bowles MD Primary Care Provider [phone] Kendra Sánchez ARCHAEOLOGIST Unavailable [phone] Encounter Details Date Type Department Care Team (Late st Contact Info) Description 06/21/2020 Telephone [facility] Radiology at [facility] [address] [place] [address] Minnie Luna, RDMS Social History Tobacco Use Types Packs/Day Years Used Date Smoking Tobacco: Former Alcohol Use Standard Drinks/Week Comments Yes 0 (1 standard drink = 0.6 oz pur e alcohol) Comments Unknown Sex and Gender Information Value Date Recorded Sex Assigned at Not on file Legal Sex Female 2:14 AM SHOE CLERK Gender Identity Not on file Sexual Orientation Not on file documented as of this encounter Plan of Treatment Not on file documented as of this encounter Visit Diagnoses Not on filedocumented in this encounter Additional Health Concerns Infection Onset Date Last Indicated Resolved Time COVID19 08/09/2024 08/09/2024 08/19/2024 3:07 AM CDT Ring Surveillance Comment:[id number] C. auris This flag is used to identify patients who are in house being monitored by Infection Prevention. If a patient discharges before a swab is collected and returns to hospital within 7 days, please reach out to IP to order a surveillance swab. Patient does NOT need isolation, patient can travel off the floor. 12/18/2024 12/18/20242024 3:07 AM SHOE CLERK documented as of this encounter Care Teams Candy Cooker Helper Relationship Specialty Start Date End Date Beth Hood MD [address] [place] [address] PCP - General Internal Medicine 05/28/20 12/29/23 Bella Bowles MD [address] [place] [address] PCP - General Geriatric Medicine 12/30/23 Karely Meyers DO [address] [facility] [address] [place] [address] Consulting Physician Endocrinology Diabetes & Metabolism 08/30/19 Kendra Sánchez, ARCHAEOLOGIST [address] [facility] ([facility]) Mailstop [phone] [place] [address] SHOP Outpatient Fish Drier 12/19/24 01/16/25 documented as of this encounter
--- OUTSIDE RECORDS SUMMARY | 2025-05-07 12:28 | XMS_ITS | Clinical Summary ---
Author Organization [facility] [employer] Address [address] [place] [address] Care Team Providers Care Urology Nurse Name Role Phone Bella Bowles MD Primary Care Provider [phone] Source Comments [facility] [employer],non-owned Affiliates and Associated Physician Practices is amultiple site organization consisting of ambulatory clinics and hospital sitesin [place], [place], [place] and [place]. This disclosure is being madepursuant to the Care Everywhere program and may not contain all information available regarding this patient. Last updated 18.[facility] [employer] Allergies Active Allergy Reactions Criticality Noted Date Comments Lisinopril Swelling Medium 03/26/2022 Medications * Be aware that medications may not be up to date on this document. Alwaysverify current medications with the patient. OneTouch Verio test strip USE DIRECTED TO TEST BLOOD SUGAR TWICE DAILY 07/15/20 22 Active B Complex Vitamins CAPS Take 1 capsule by mouth once daily Active Cholecalcifero l 50 MCG (1999 UT) Take 1 (one) tablet by mouth 2 times daily Active Repatha SureClick 140 MG/ML auto-injector 01/25/20 23 Active Multiple Vitamin (Multi-Vitamin s) TABS once daily Active icosapent ethyl (Vascepa) 1 g capsule Take 2 (two) capsules by mouth 2 times daily with morning and evening meal 360 capsule 3 08/12/20 23 Active Tresiba FlexTouch 200 UNIT/ML pen INJECT 20 UNITS UNDER THE SKIN EVERY EVENING. PRIME PEN WITH 2 UNITS DAILY 02/10/20 24 Active apixaban (Eliquis) 5 MG tablet Take 1 (one) tablet by mouth 2 times daily 06/08/20 24 Active Alpha-Lipoic Acid 600 MG Take 600 mg by mouth at bedtime Active acetaminophen (Tylenol) 500 MG tablet Take 1 (one) tablet by mouth every 6 hours as needed 09/09/20 24 Active amiodarone (Cordarone) 200 MG tablet Take 1 (one) tablet by mouth once daily 12/19/19 25 026 Active Farxiga 10 MG tablet Take 1 (one) tablet by mouth once daily 12/29/19 25 Active furosemide (Lasix) 20 MG tablet 12/01/19 25 Active losartan (Cozaar) 100 MG tablet Take 1 (one) tablet by mouth once daily 04/26/20 25 Active metFORMIN ER 24hr (Glucophage XR) 500 MG tablet Take 1 (one) tablet by mouth once daily 04/26/20 25 Active losartan (Cozaar) 50 MG tablet TAKE 1 TABLET BY MOUTH EVERY DAY 90 tablet 3 05/27/20 24 025 Discontinued metFORMIN ER 24hr (Glucophage XR) 500 MG tablet TAKE 2 TABLETS BY MOUTH TWICE DAILY 360 tablet 3 05/27/20 24 025 Discontinued metoprolol tartrate IR (Lopressor) 25 MG tablet Take 1 (one) tablet by mouth 2 times daily 06/08/20 24 025 Discontinued(Tx Complete) Active Problems Problem Noted Date Diagnosed Date Obesity, morbid 04/26/2025 Eye swelling 03/26/2022 Overview (01/27/2023): Last Assessment & Plan: After reviewing her photos, I am not convinced that this is angioedema, but to err on the side of safety we will stop TONY and substitute ARB. Lisinopril added to allergy list. She will call me KRISTI with any recurrent sx. Chronic MARIMAR (middle ear effusion), left 07/25/20 Overview (01/27/2023): Last Assessment & Plan: Trial flonase 2 sprays each nostril every day. If no improvement, she will f/u with ENT Essential hypertension 07/25/2020 Overview (01/27/2023): Last Assessment & Plan: BP at goal <130/80 at home. - Current medication regimen: cont losartan 25mg every day - cont home BP monitoring - Counseled regarding lifestyle measures to control HTN including low salt diet rich in fruits and vegetables, limiting alcohol use, regular exercise, and weight loss of 5-10% if pt is obese. Mixed hyperlipidemia 07/25/2020 Overview (01/27/2023): Last Assessment & Plan: Lab Results Component Value Date CHOL 121 [...] of statins due to transaminitis. - Cont Vascepa, Repatha. - Counseled regarding diet changes to lower TGs Multiple thyroid nodules 07/25/2020 Overview (01/27/2023): Last Assessment & Plan: Euthyroid. Right thyroid nodule stable. Left thyroid nodule has increased in size by 33%. FNA repeated in 06/2020 and it was benign --> repeat u/s done showed increase in size in left thyroid nodule. She underwent FNA with benign cytology. - No further f/u needed Tinea pedis of both feet 07/25/2020 Overview (01/27/2023): Last Assessment & Plan: Terbinafine topical bid Type 2 diabetes mellitus with obesity 07/25/2020 Overview (01/27/2023): Last Assessment & Plan: Control is stable Medication regimen: Metformin XR 500mg bid HbA1c Lab Results Component Value Date HGBA1C 8.2 (H) 08/15/2022 Microalbumin/Creatinine Lab Results Component Value Date MICROALBUR <3.0 11/15/2019 ACEi/ARB prescribed yes Statin prescribed no intolerant due to transaminitis Foot/extremity exam performed 07/2022, protective sensation intact. Retinopathy screening performed UTD Pt counseled regarding diet, physical activity, medication adherence Encounters Date Type Department Care Team Description 04/26/2025 11:00 AM CDT Office Visit [facility] - Geriatrics [address] [place] [id number] Bella Bowles MD Essential hypertension (Primary Dx); Type 2 diabetes mellitus without complication, without long-term current use of insulin (HCC); Obesity, morbid (HCC); Type 2 diabetes mellitus with obesity (HCC) 04/26/2025 Travel from Last 3 Months Immunizations Immunization Administration Dates Next Due COVID PFIZER 12+YR 30MCG/0.3mL 09/24/2024,2022 Covid Pfizer primary Monoval ent 12+ yr 0.3ml 06/26/2022 Covid Pfizer primary monoval ent 12+ yr 0.3mL Purple cap 06/23/2022,09/17/2021 FLU VACCINE TRI IIV3 SPLIT IM (FLUVIRIN) 013 FLU VACCINE TRI IIV3 SPLIT PF IM (FLUVIRIN) 11/2004 INFLUENZA VACCINE 09/23/2024 INFLUENZA VACCINE, ADJUVANTE D, TRIV. (FLUAD TRIVALENT; 65Y+) (AIIV3) 09/24/2024 INFLUENZA VACCINE, HIGH-DOSE , QUADR. (FLUZONE HIGH-DOSE QUADRIVALENT; 65Y+), 0.7 ML (HD-IIV4) 08/12/2023,08/15/2022,07/25/2020 INFLUENZA VACCINE, HIGH-DOSE , TRIV. (FLUZONE HIGH-DOSE TRIVALENT; 65Y+) (HD-IIV3) 07/25/2020 INFLUENZA VACCINE, QUADR. (A FLURIA, FLUZONE QUADRIVALENT; 6MO+) (IIV4) 09/04/2016 INFLUENZA VACCINE, QUADR. (F LUZONE; FLULAVAL; FLUARIX; AFLURIA QUADRIVALENT; 6MO+), 0.5 ML (IIV4) 08/19/2018,08/27/2017 PNEUMOCOCCAL PCV20 CONJ VAC IM 08/12/2023 RSV AREXVY 60YR+ 0.5ML 10/08/2023 TDAP (7yrs+) 11/30/2024,03/23/2014 Family History Medical History Relation Name Comments Cancer - Bladder Father Diabetes - Type 2 Mother Relation Name Status Comments Father Mother Social History Tobacco Use Types Packs/Day Years Used Date Smoking Tobacco: Former Cigarettes Q uit: 11/23/1969 Smokeless Tobacco: Never Alcohol Use Standard Drinks/Week Comments Not Currently 0 (1 standard drink = 0.6 oz pur e alcohol) occ. PHQ-2 Answer Date Recorded Patient Health Questionnaire-2 Score 0 02/17/2024 Comments No Sex and Gender Information Value Date Recorded Sex Assigned at Female 08/10/2023 10:33 AM CDT Legal Sex Female 9:33 AM DOBBY LOOM WEAVER Gender Identity Female 08/10/2023 10:33 AM CDT Sexual Orientation Not on file Last Filed Vital Signs Vital Sign Reading Time Taken Comments Blood Pressure 125/79 04/26/2025 11:01 AM CDT Pulse 65 04/26/2025 11:01 AM CDT Temperature - - Respiratory Rate - - Oxygen Saturation 96% 04/26/2025 11:01 AM CDT Inhaled Oxygen Concentration - - Weight 117 kg (258 lb) 04/26/2025 10:58 AM CDT Height 177.8 cm (5' 10) 04/26/2025 10:58 AM CDT Body Mass Index 37.02 04/26/2025 10:58 AM CDT Plan of Treatment Upcoming Encounters Date Type Department Care Team (Late st Contact Info) Description 08/02/2025 11:00 AM CDT Office Visit [facility] - Geriatrics [address] [facility], [place] [id number] Bella Bowles MD [address] [place] [address] [address] [place] [address] 10/11/2025 11:30 AM DOBBY LOOM WEAVER Office Visit [facility] - [address] [place] [address] Bella Bowles MD [address] [place] [address] [address] [address] Health Maintenance Due Date Last Done Comments COLOGUARD (AGES 45-75) - COLON CA SCREENING 1953 CT COLONOGRAPHY - COLON CA SCREENING 1953 FIT - COLON CA SCREENING 1955 FLEX SIG - COLON CA SCREENING 1955 MEDICARE AWV 12 MONTHS 1955 DIABETES-STATIN 1993 ZOSTER VACCINE (1 of 2) 2003 DIABETES-FOOT EXAM WITH MONOFILAMENT 01/27/2023 DEPRESSION SCREENING 11/23/2024 02/17/2024, 08/12/20 DIABETES - URINE PROTEIN SCREENING 11/23/2024 DIABETES RETINOPATHY SCREENING 01/27/2025 01/27/2023, 01/12/2023 COVID-19 VACCINE ( season) 2025 09/24/2024, 10/08/2023, 06/26/2022, Additional history exists DIABETES-HGB A1C 09/16/2025 03/17/2025, , 11/30/2024, Additional history exists DIABETES-SERUM CREATININE 02/10/20262024, 04/26/2023, 04/26/2023 MAMMOGRAM 02/17/2027 02/17/2025, 01/22, 02/17/2025, Additional history exists COLON MONITORING 03/11/2031 03/11/2021 COLONOSCOPY - COLON CA SCREENING 03/11/2031 03/11/2021 Colorectal Cancer Screening 03/11/2031 DTAP/TDAP/TD VACCINES (3 - Td or Tdap) 11/30/2034 11/30/2024, 03/23/2014 BONE DENSITY TESTING Completed 04/24/2023, 12/13/2020, 07/29/2017, Additional history exists PNEUMOCOCCAL VACCINE 50+ Completed 08/12/2023 Respiratory Syncytial Virus (RSV) Vaccine Pt: or over 60 yrs Completed 10/08/2023 HEPATITIS C SCREENING Completed 09/01/2024 INFLUENZA VACCINE Completed 09/24/2024, , 08/12/2023, Additional history exists HEPATITIS B VACCINE Aged Out No longe r eligible based on patient's age to complete this topic HIB VACCINE Aged Out No longer eligi ble based on patient's age to complete this topic HPV VACCINE Aged Out No longer eligi ble based on patient's age to complete this topic MENINGOCOCCAL (Group B) VACCINE SHARED DECISION-MAKING Aged Out No longer eligible based on patient's age to complete this topic MENINGOCOCCAL GROUPS A/C/Y/W VACCINE Aged Out No longer eligible based on patient's age to complete this topic Procedures Procedure Name Priority Date/Time Associated Diagnosis Comments MAMMOGRAM Routine 02/17/2025 3:17 PM CDT HEMOGLOBIN A1C - POINT OF CARE (AMB) [facility] Routine 11/30/2024 Type 2 diabetes mellitus without complication, without long-term current use of insulin from Last 3 Months or Most Recently Relevant to Health Maintenance Results * MAMMOGRAM (02/17/2025 3:17 PM CDT) Anatomical Region Laterality Modality Other us Historical Provider MD SCANNING ONLY Final Res ult * HEMOGLOBIN A1C - POINT OF CARE (AMB) [facility] (11/30/2024) Hemoglobin A1c POCT 6.7 % BLOOD SPECIMEN / Unknown 11/30/2024 us Bella Bowles MD LAB - POINT OF CARE ORDERABLE S Final Result from Last 3 Months or Most Recently Relevant to Health Maintenance Insurance [facility] MEDICARE [facility] MEDICARE ANTHE[place] MEDICARE ANTHE[place] MEDICARE [facility] MEDICARE ANTHEM MEDICARE ANTHEM MEDICARE AN[place] MEDICARE AN[place] MEDICARE [facility] Care Teams Urology Nurse Relationship Specialty Start Date End Date Bella Bowles MD [address] [address] PCP - General Internal Medicine Geriatric Medicine 02/17/24
--- OUTSIDE RECORDS SUMMARY | 2025-05-07 12:29 | XMS_ITS | Encounter Summary ---
Author Organization [facility] Address [address] [place] [address] Phone Care Team Providers Care Laborer Beam House Name Role Phone Karely Meyers DO Unavailable [phone] Bella Bowles MD Primary Care Provider [phone] Encounter Details Date Type Department Care Team (Latest Contact Info) Description 03/19/2025 Results Follow-Up [facility] Endocrinology Metabolism and Lipid [address] [facility] 2nd Floor [address] [place] [address] Karely Meyers DO [address] [facility] [address] [place], [place] [id number] Hemoglobin A1c, Calcium, ionized, Comprehensive metabolic panel, Additional followed-up results: 8 Social History Tobacco Use Types Packs/Day Years Used Date Smoking Tobacco: Former Cigarettes 0.3 5 1 972 - 1976 Passive Smoke Exposure: Past Smokeless Tobacco: Never Alcohol Use Standard Drinks/Week Comments Not Currently 0 (1 standard drink = 0.6 oz pur e alcohol) special occasions only [facility] Utilities Answer Date Recorded In the past 12 months has [employer] Referrals, gas, oil, or water company threatened to shut off services in your [...] often do you attend chur ch or mandaen services? Never 12/19/2024 Do you belong to any clubs o r organizations such as gnosticism groups, unions, fraternal or athletic groups, or [...] any time in the past 12 m [facility], were you homeless or living in a longterm (including now)? No 12/19/2024 Personal Safety Answer Date Recorded Have you ever been in or are you currently in a harmful physical or emotional relationship or is someone making you feel afraid or unsafe? Denies 12/14/2024 Comments No Sex and Gender Information Value Date Recorded Sex Assigned at Not on file Legal Sex Female 2:14 AM DIRECTOR OF SALES SUPPORT Gender Identity Not on file Sexual Orientation Not on file documented as of this encounter Plan of Treatment Not on file documented as of this encounter Visit Diagnoses Not on filedocumented in this encounter Care Teams Laborer Beam House Relationship Specialty Start Date End Date Bella Bowles MD [address] [place] [address] PCP - General Geriatric Medicine 12/30/23 Karely Meyers DO [address] [facility] [address] [place] [address] Consulting Physician Endocrinology Diabetes & Metabolism 08/30/19 documented as of this encounter
--- OUTSIDE RECORDS SUMMARY | 2025-05-07 12:29 | XMS_ITS | Clinical Summary ---
Author Organization [facility] Address [address] [place] [address] Care Team Providers Care Frame Catcher Name Role Phone Karely Meyers DO Unavailable [phone] Bella Bowles MD Primary Care Provider [phone] Allergies Active Allergy Reactions Criticality Noted Date [...] mg total) by mouth daily 30 tablet 5 12/01/19 26 Active amiodarone (PACERONE) 200 mg tabletIndication s:Cardioversion of Atrial Fibrillation Take 1 tablet (200 mg total) by mouth daily 30 tablet 5 12/19/19 26 Active Farxiga 10 mg tablet Take 1 tablet (10 mg total) by mouth daily 30 tablet 5 Active losartan (COZAAR) 100 mg tablet Take 1 tablet (100 mg total) by mouth daily 90 tablet 1 5 01/02/20 26 Active blood glucose diagnostic ([employer] Verio test strips) strip Check BS 3x [...] 12/15/2024 Assessment & Plan (12/17/2024 11:23 AM ICT SYSTEMS TEST ENGINEER): HFrEF, per last TTE (06/2024), LVEF 50%, mild MR, mild to mod TR. -Hemodynamically stable, appears euvolemic on exam -Continue home Lasix 20 mg PO daily -Continue Farxiga 10 mg daily -Would benefit from addition of spironolactone which can be added outpatient -Strict I & Os, daily standing weights, 2G sodium diet, telemetry monitoring Assessment & Plan (12/16/2024 11:59 AM ICT SYSTEMS TEST ENGINEER): HFrEF, per last TTE (06/2024), LVEF 50%, mild MR, mild to mod TR. -appears euvolemic on exam -continue home Lasix 20 mg PO daily - consider SGLT2i, will crespo check -tele monitoring, strict I&Os, daily weights, 2 g Na diet Assessment & Plan (12/15/2024 11:03 AM ICT SYSTEMS TEST ENGINEER): HFrEF, per last TTE (06/2024), LVEF 50%, mild MR, mild to mod TR. -appears euvolemic on exam -continue home Lasix 20 mg PO daily -tele monitoring, strict I&Os, daily weights, 2 g Na diet A-fib 12/14/2024 Assessment & Plan (12/17/2024 11:25 AM ICT SYSTEMS TEST ENGINEER): History of A. Fib on Eliquis. 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 angina pectoris 07/23/2024 Abnormal stress [...] 07/25/2020 Assessment & Plan (12/17/2024 11:24 AM ICT SYSTEMS TEST ENGINEER): Admission HgbA1C 7.3 -Continue Lantus 16 units in the evening plus LD SSI -Continue Farxiga 10 mg daily -Acucchecks -Carb consistent diet Assessment & Plan (12/16/2024 12:00 PM ICT SYSTEMS TEST ENGINEER): -On admission, HgbA1C 7.3 -Continue Lantus 16 units in the evening plus low-dose SSI -glucose check AC + HS -consider SGLT2i, will crespo check Assessment & Plan (12/15/2024 10:59 AM ICT SYSTEMS TEST ENGINEER): -On admission, HgbA1C 7.3 -Continue Lantus 16 [...] 07/25/2020 Assessment & Plan (12/17/2024 11:21 AM ICT SYSTEMS TEST ENGINEER): -Continue losartan 100 daily Assessment & Plan (12/16/2024 11:59 AM ICT SYSTEMS TEST ENGINEER): -continue Cozaar 100 daily Assessment & Plan (12/15/2024 10:57 AM ICT SYSTEMS TEST ENGINEER): -continue Cozaar 100 daily Assessment & Plan [...] Intolerant of statins due to transaminitis. - Cait Lo. - Counseled regarding diet changes to lower TGs Assessment & Plan (07/25/2020 1:37 PM CDT): Last LDL at goal. Intolerant of statins due to transaminitis. - Cait Lo Multiple thyroid nodules 07/25/2020 Assessment & Plan [...] Alcohol screening 07/25/2020 07/25/2020 Overview (07/25/2020): negative Encounters Date Type Department Care Team Description 04/26/2025 Orders Only [facility] Endocrinology Metabolism and Lipid [address] [place] [address] Taniya Chisholm RMA Osteopenia, unspecified location (Primary Dx); Osteopenia after menopause 03/19/2025 Results Follow-Up [facility] Endocrinology Metabolism and Lipid [address] [place] [address] Karely Meyers DO Hemoglobin A1c, Calcium, ionized, Comprehensive metabolic panel, Additional followed-up results: 8 02/27/2025 Telephone [facility] Endocrinology Metabolism and Lipid [address] [place] [address] Taniya Chisholm RMA [facility] 02/17/2025 1:26 PM CDT - 02/17/2025 11:59 PM CDT Hospital Encounter [facility] [address] [place] [address] [address] [place] [address] Screening mammogram, encounter for Discharge Disposition: Discharge to home or self care 02/10/2025 8:45 AM CDT Office Visit [facility] Endocrinology Metabolism and Lipid [address] [place] [address] Karely Meyers DO Type 2 diabetes mellitus [...] left adrenal gland from Last 3 Months Immunizations Immunization Administration Dates Next Due Influenza, [...] Vaccination (12+ Yrs) PURPLE 06/23/2022,02/01/2021,01/11/2021,01/11 Tdap 03/23/2014 Surgical History Surgery Date Site/Laterality Comments IR FINE NEEDLE ASPIRATION W IMAGE GUIDANCE 05/16/2015 N/A [place] ARTHRP KNE CONDYLE&PLATU MEDIAL&LAT COMPARTMENTS 11/23/2016 - 11/22/2017 Left Total Knee Replacement Left - (Added by TW Conv) W[place] ARTHRP KNE CONDYLE&PLATU MEDIAL&LAT COMPARTMENTS 11/23/2016 - 11/22/2017 Right Total Knee Replacement Right - (Added by TW Conv) HYSTERECTOMY 11/23/2007 - 11/22/2008 with oopherectomy HERNIA REPAIR 11/23/2009 - 11/22/2010 ADRENALECTOMY 11/23/2016 - 11/22/2017 COLONOSCOPY TONSILLECTOMY 1961 Medical History Medical History Date Comments High cholesterol HTN (hypertension) Type 2 diabetes mellitus (HCC) Neuropathy, autonomic, idiopathic Goiter Pheochromocytoma s/p L adrenalec clyde Osteoarthritis History of transfusion Malignant neoplasm of endometrium (HCC) 2007 s/p chemo and hysterectomy Cataract Heart disease Arthritis Breathing problem Overweight Family History Medical History Relation Name Comments Hypertension Brother 1 Hypertension - (Added by TW Conv) Kidney disease Brother 1 No Known Problems Brother 2 Diabetes type II Daughter Bladder Cancer Father Bladder Cance r - (Added by TW Conv) Blood Clot Father Dementia Mother Diabetes Mother Family history of diabetes mellitus - (Added by TW Conv) Hypertension Mother Hypertension - (Added by TW Conv)/Family history of hypertension - (Added by TW Conv) COPD Sister Lung cancer Sister Psoriasis Sister Anesthesia problems Neg Hx Relation Name Status Comments Brother 1 Alive Brother 2 Alive Daughter Father Mother Sister Social History Tobacco Use Types Packs/Day Years Used Date Smoking Tobacco: Former Cigarettes 0.3 5 1 1976 Passive Smoke Exposure: Past Smokeless Tobacco: Never Tobacco Cessation:Counseling Given: Not Answered Alcohol Use Standard Drinks/Week Comments Not Currently 0 (1 standard drink = 0.6 oz pur e alcohol) special occasions only [facility] Utilities Answer Date Recorded In the past [address] [employer] [address] electric, gas, oil, or water [employer] threatened to shut off services in your [...] often do you attend chur ch or restorationist services? Never 12/19/2024 Do you belong to any clubs o r organizations such as anabaptism groups, unions, fraternal or athletic groups, or [...] any time in the past 12 m [facility], were you homeless or living in a usp (including now)? No 12/19/2024 Personal Safety Answer Date Recorded Have you ever been in or are you currently in a harmful physical or emotional relationship or is someone making you feel afraid or unsafe? Denies 12/14/2024 Comments No Sex and Gender Information Value Date Recorded Sex Assigned at Not on file Legal Sex Female 2:14 AM ICT SYSTEMS TEST ENGINEER Gender Identity Not on file Sexual Orientation Not on file Obstetrics History Last Filed Vital Signs Vital Sign Reading Time Taken Comments Blood Pressure 130/82 02/10/2025 8:44 AM CDT Pulse 61 02/10/2025 8:44 AM CDT Temperature 36.2 C (97.2 F) 02/10/2025 8:44 AM CDT Respiratory Rate 17 12/18/2024 7:36 AM ICT SYSTEMS TEST ENGINEER Oxygen Saturation 98% 02/10/2025 8:44 AM CDT Inhaled Oxygen Concentration - - Weight 112.5 kg (248 lb) 02/10/2025 8:44 AM CDT Height 177.8 cm (5' 10) 02/10/2025 8:44 AM CDT Body Mass Index 35.58 02/10/2025 8:44 AM CDT Plan of Treatment Health Maintenance Due Date Last Done Comments Dilated Eye Exam 1955 Foot Exam 1955 Hepatitis B Screening 1971 Pneumococcal vaccine 65+ (1 of 2 - PCV) 02/25/1972 Zoster Vaccine (1 of 2) 2003 Depression Screening 08/15/2023 08/15/2022, 07/25/2021, 07/25/2021, Additional history exists Well Visit 65+ 08/15/2023 08/15/2022, 12/2020, 07/25/2020 Covid-19 Vaccine (6 - 2023-2 5 season) 2024 06/23/2022, 09/17/2021, 02/01/2021, Additional history exists Osteoporosis Screening-Bone Density Scan 04/24/2025 04/24/2023, 12/13/2020, 07/29/2017, Additional history exists Hemoglobin A1C 09/16/2025 03/17/2025, 11/24, 08/22/2024, Additional history exists Lipid Panel 12/15/2025 12/15/2024, 07/25, 01/14/2022, Additional history exists Fall Risk Assessment 12/18/2025 12/18/2024, 08/15/2022, 07/25/2021, Additional history exists Breast Cancer Screening-Mammogram 02/17/2026 02/17/2025, 01/29/2024, 12/23/2022, Additional history exists Albumin Creatinine Ratio, Urine 03/17/2026 03/17/2025, 08/22/2024, 05/17/2024, Additional history exists eGFR 03/17/2026 03/17/2025, 11/24, 12/18/2024, Additional history exists Colon Cancer Screening-Colonoscopy 03/11/2031 03/11/2021, 09/08/2013 DTaP/Tdap/Td Vaccine (3 - Td or Tdap) 11/30/2034 11/30/2024, 03/23/2014 Colon Cancer Screening-CT Colonography Discontinued 03/11/2021, 09/08/2013 Colon Cancer Screening-DNA Stool Discontinued 03/11/20 21, 09/08/2013 Colon Cancer Screening-FIT Discontinued 03/11/2021, Colon Cancer Screening-Sigmoidoscopy Discontinued 03/11/2021, 09/08/2013 Hepatitis C Screening Completed 09/01/2024, 017 Influenza Vaccine Completed 09/24/2024, , 08/15/2022, Additional history exists Procedures Procedure Name Priority Date/Time Associated Diagnosis [...] CDT Screening mammogram, encounter for POCT GLUCOSE [id number] Routine 02/10/2025 8: 51 AM CDT Type 2 diabetes mellitus without complication, without long-term current use of insulin (HCC) LIPID PANEL Routine 12/15/2024 4:08 AM ICT SYSTEMS TEST ENGINEER HEPATITIS C ANTIBODY Routine 09/01/2024 10:30 AM [...] [facility] - 03/27/2025 7:08 AM CDT Test(s) 685579-Iocfoqeztfzivsa, Pl; 536040-Sckihwvqnlhb, Pl was developed and its performance characteristics determined by [facility]. It has not been cleared or approved by the Food and Drug Administration. Performed at: - [address] [id number] Teletype Operator: Sandy Hogan MD, Phone: [phone] Karely Meyers LAB BLOOD ORDERABLES Fi nal Result [facility] - 01 * (ABNORMAL) Hemoglobin A1c (03/17/2025 9:43 AM CDT) Hgb A1C 6.2(H) 4.8 - 5.6 % [facility] - Comment: Prediabetes: 5.7 - 6.4 Diabetes: >6.4 Glycemic control for adults with diabetes: <7.0 Blood 03/17/2025 9:43 AM CDT 03/17/2025 Narrative [facility] - 03/18/2025 7:09 AM CDT Performed at: [address] [place], [place] [id number] Teletype Operator: Devin Salazar PhD, Phone: [phone] Karely Meyers LAB BLOOD ORDERABLES Fi nal Result Performing Organization Address [facility] Co de Phone Number [facility] - * Calcium, ionized (03/17/2025 9:41 AM CDT) [facility] Calcium, Ionized, Serum 5.1 4.5 - 5.6 mg/dL [facility] - Blood 03/17/2025 9:41 AM CDT 03/17/2025 Narrative [facility] - 03/18/2025 3:09 PM CDT Performed at: [address] [place] [id number] Teletype Operator: Devin Salazar PhD, Phone: [phone] Karely Coatesme DO LAB BLOOD ORDERABLES Fi nal Result Performing Organization Address City/[facility] Co de Phone Number [facility] - 01 * Albumin Creatinine Ratio, Urine (03/17/2025 9:41 AM CDT) Pathologist [facility] Creatinine ur 14.5 Not Estab. mg/dL [facility] - 01 Microalbumin, ur <3.0 Not Estab. ug/mL [facility] - 01 Microalbumin/cre at ratio <21 0 - 29 mg/g creat [facility] - 01 Comment: Normal: 0 - 29 Moderately increased: 30 - 300 Severely increased: >300 Urine 03/17/2025 9:41 AM CDT 03/17/2025 Narrative [facility] - 03/18/2025 9:10 AM CDT Performed at: [address] [id number] Teletype Operator: Devin Salazar PhD, Phone: [phone] us Karely Meyers DO LAB URINE ORDERABLES Fi nal Result [facility] - * (ABNORMAL) Lipoprotein NMR (03/17/2025 [...] taken into account. LP-IR Score 44 <=45 [facility] - 01 Comment: INSULIN RESISTANCE MARKER <--Insulin [...] [facility] - 03/19/2025 3:08 PM CDT Test(s) 461086-FYO-J; 479211-UPR-E; 996548-Fflpoisiqtpac; 238931- Cholesterol, Total; 006815-SKC-F (Total); 993901-Slgnb LDL-P; 380171- LDL Size; 661421-MR-DT Score was developed and its performance characteristics determined by [facility]. It has not been cleared or approved by the Food and Drug Administration. Performed at: 01 - [address] [id number] Teletype Operator: Sandy Hogan MD, Phone: [phone] us Karely Meyers DO LAB BLOOD ORDERABLES Fi nal Result [facility] - 01 * Vitamin D 25 hydroxy (03/17/2025 9:41 AM CDT) Vitamin D, 25-Hydroxy 45.8 30.0 - 100.0 ng/mL [facility] - 01 Comment: Vitamin D deficiency has been defined by the Breaks of Medicine and an Endocrine Society practice guideline as a level of serum 25-OH vitamin D less than 20 ng/mL (1,2). The Endocrine Society went on to further define vitamin D insufficiency as a level between 21 and 29 ng/mL (2). 1. IOM (Breaks of Medicine). 2010. Dietary reference intakes for calcium and D. [place]: The National Academies Press. 2. Irma MF, Demetrio NC, Swetha SCHAEFER, et al. Evaluation, treatment, and prevention of vitamin D deficiency: an Endocrine Society clinical practice guideline. JCEM. 2010; 96(7):1911-30. Blood 03/17/2025 9:41 AM CDT 03/17/2025 Narrative [facility] - 03/18/2025 7:09 AM CDT Performed at: [address] [id number] Teletype Operator: Devin Salazar PhD, Phone: [phone] Karely Meyers [facility] LAB BLOOD ORDERABLES Fi nal Result [facility] * TSH (03/17/2025 9:41 AM CDT) TSH 3.070 0.450 - 4.500 uIU/mL [facility] - 01 Blood 03/17/2025 9:41 AM CDT 03/17/2025 Narrative [facility] - 03/18/2025 7:09 AM CDT Performed at: [address] [place] [id number] Teletype Operator: Devin Salazar PhD, Phone: [phone] Karely Meyers DO LAB BLOOD ORDERABLES Fi nal Result Performing Organization Address [facility] Co de Phone Number [facility] - 01 * T4, free (03/17/2025 9:41 AM CDT) Pathologist [facility] T4,Free(Direct) 1.39 0.82 - 1.77 ng/dL [facility] - 01 Blood 03/17/2025 9:41 AM CDT 03/17/2025 Narrative [facility] - 03/18/2025 7:09 AM CDT Performed at: [address] [id number] Teletype Operator: Devin Salazar PhD, Phone: [phone] Karely Meyers LAB BLOOD ORDERABLES Fi nal Result Performing Organization Address [facility] Co de Phone Number [facility] - 01 * PTH (03/17/2025 9:41 AM CDT) [facility] PTH Intact 19 15 - 65 pg/mL [facility] 02 Blood 03/17/2025 9:41 AM CDT 03/17/2025 Narrative [facility] - 03/19/2025 3:08 PM CDT Performed at: [address] [place] [id number] Teletype Operator: Devin Salazar PhD, Phone: [phone] Karely Meyers DO LAB BLOOD ORDERABLES Fi nal Result Performing Organization Address [facility] Co de Phone Number [facility] 02 * Vitamin B12 (03/17/2025 9:41 AM CDT) [facility] Vitamin B12 700 232 - 1,245 pg/mL [facility] - 01 Blood 03/17/2025 9:41 AM CDT 03/17/2025 Narrative [facility] - 03/18/2025 7:09 AM CDT Performed at: - [facility] [id number] Teletype Operator: Devin Salazar PhD, Phone: [phone] Karely Meyers DO LAB BLOOD ORDERABLES Fi nal Result [facility] - 01 * (ABNORMAL) Comprehensive metabolic panel (03/17/2025 9:41 AM CDT) Glucose 114(H) 70 - 99 mg/dL [facility] [...] - 03/18/2025 7:09 AM CDT Performed at: 01 - [address] [id number] Teletype Operator: Devin Salazar PhD, Phone: [phone] Karely Meyers DO LAB BLOOD ORDERABLES Fi nal Result [facility] - 01 * Screening Mammogram Bilateral W Henry (02/17/2025 1:39 PM CDT) Anatomical Region Laterality Modality Breast Bilateral Mammography Narrative 02/20/2025 2:39 PM CDT Mammogram Technique: Bilateral Digital Breast Tomosynthesis, Bilateral C-view 2D Screening mammogram. Views obtained: bilateral craniocaudal and bilateral mediolateral oblique. Computer Aided Detection was performed. Mammogram Findings: The present examination has been compared to prior imaging studies performed at [facility] on 08/26/2021, 12/23/2022 and 01/29/2024. There are [...] compared to prior imaging studies performed at [facility] on 08/26/2021, 12/23/2022 and 01/29/2024. There are [...] 122 mg/dL Blood 02/10/2025 8:51 AM CDT us Karely Meyers DO POINT OF CARE TEST CORAL CURIEL Final Result * Lipid panel (12/15/2024 4:08 AM ICT SYSTEMS TEST ENGINEER) Cholesterol 122 30 - 199 mg/dL Comment: [...] revised on 2018. Triglycerides 127 <=149 mg/dL [facility] Comment: Interpretive Data Ages < or [...] on 2018. HDL 42 >=40 mg/dL [facility] Comment: Interpretive Data Ages < or [...] on 2018. LDL, calculated 57 <=129 mg/dL [facility] Comment: Interpretive Data Ages < or [...] 3. Porter Kuhn et al. ROSENDO Cardiol. 2020 March 23;5(5):540-548. doi: 10.1001/jamacardio.2020.0013 Current Interpretive Data was last revised on 2024. Non-HDL Cholesterol 80 mg/dL [facility] Comment: Interpretive Data Ages < or [...] last revised on 2018. Chol/HDL ratio 3 [facility] Blood 12/15/2024 4:08 AM ICT SYSTEMS TEST ENGINEER 12/15/2024 4:35 AM ICT SYSTEMS TEST ENGINEER us Andreas Cerda MD LAB BLOOD ORDERABLES Final Res ult [facility] [place] [address] * Hepatitis C antibody Blood (09/01/2024 10:30 [...] - 09/02/2024 7:11 AM CDT Performed at: - [address] [id number] Teletype Operator: Devin Salazar PhD, Phone: [phone] us Karely Meyers DO LAB MICROBIOLOGY - GENE RAL ORDERABLES Final Result [facility] - 01 * Dexa Axial Skeleton Bone Density 1 or 2 Site (04/24/2023 8:23 AM CDT) Anatomical Region Laterality Modality Body N/A Radiographic Elissa ging Narrative 04/26/2023 8:36 PM CDT Patient Name: Felicity Phan Date of : 1955 Date of scan: 04/24/2023 Bone mineral density was performed on a [employer] Discovery Densitometer. Based on machine cross-calibration and [...] by the International Society of Clinical Densitometry. [id number] Karely Meyers DO [facility] DXA PROCEDURES Sonja l Result * COLONOSCOPY (03/11/2021 10:50 AM CDT) Anatomical Region Laterality Modality Other Narrative Procedure Note Jeremiah Grande MD - 03/11/2021 10:50 AM CDT [facility] Patient Name: Felicity Phan Procedure Date: 03/11/2021 10:50 AM Date of : 1955 Admit Type: Outpatient Age: 66 Gender: Female Attending MD: Jeremiah Grande M.D. Room: [facility] ENDOSCOPY ROOM 8 Note Status: Finalized [...] On: 03/11/2021 10:50 AM Recognized by the [employer] [employer] for promoting quality in endoscopy us Jeremiah Mejia MD ENDOSCOPY PROCEDURES Final Res ult from Last 3 Months or Most Recently Relevant to Health Maintenance Insurance MEDICARE [employer] MEDICARE SUPPLEMENT [facility] MEDICARE ADVANTAGE MEDICARE [facility] [phone] MEDICARE MEDICARE [employer] MEDICARE SUPPLEMENT MEDICARE [facility] Advance Directives For more information, please contact: [phone] Documents on File Type Date Recorded Patient Fire Control Officer Expl anation ADVANCE DIRECTIVE 09/21/2024 10:52 AM POW ER OF POULTRY BUYER-MEDICAL Power of Third Mate 09/09/2024 8:49 AM * Full Code (Latest Code Status on File) Date Activated Date Inactivated Comments 12/14/2024 5:47 PM 12/18/2024 3:28 PM * Full Code Date Activated Date Inactivated Comments 08/26/2024 7:51 AM 08/27/2024 4:32 AM * Full Code Date Activated Date Inactivated Comments 03/11/2021 9:54 AM 03/11/2021 4:22 PM Care Teams Frame Catcher Relationship Specialty Start Date End Date Bella Bowles MD [address] [place] [address] PCP - General Geriatric Medicine 12/30/23 Karely Meyers DO [address] [facility] [address] [place] [address] Consulting Physician Endocrinology Diabetes & Metabolism 08/30/19
--- OUTSIDE RECORDS SUMMARY | 2025-05-07 12:29 | XMS_ITS | Continuity of Care Document ---
Author Organization [facility] Address [address] [place] [address] [address] [place] [address] Phone Care Team Providers Care Estimator Project Manager Name Role Phone Negrito Rice Unavailable Unavailable Procedures Procedure Date PT RE-EVALUATION THERAPEUTIC EXERCISES NEUROMUSCULAR RE-ED MANUAL THERAPY FUNC ACTIVITY HOT/COLD PACK ELECTRIC STIMULATION UNATT THERAPEUTIC EXERCISES NEUROMUSCULAR RE-ED MANUAL THERAPY FUNC ACTIVITY HOT/COLD PACK ELECTRIC STIMULATION UNATT THERAPEUTIC EXERCISES NEUROMUSCULAR RE-ED MANUAL THERAPY FUNC ACTIVITY HOT/COLD PACK ELECTRIC STIMULATION UNATT THERAPEUTIC EXERCISES NEUROMUSCULAR RE-ED MANUAL THERAPY FUNC ACTIVITY HOT/COLD PACK ELECTRIC STIMULATION UNATT THERAPEUTIC EXERCISES NEUROMUSCULAR RE-ED MANUAL THERAPY HOT/COLD PACK ELECTRIC STIMULATION UNATT THERAPEUTIC EXERCISES MANUAL THERAPY HOT/COLD PACK ELECTRIC STIMULATION UNATT THERAPEUTIC EXERCISES NEUROMUSCULAR RE-ED MANUAL THERAPY HOT/COLD PACK ELECTRIC STIMULATION UNATT THERAPEUTIC EXERCISES NEUROMUSCULAR RE-ED MANUAL THERAPY HOT/COLD PACK ELECTRIC STIMULATION UNATT THERAPEUTIC EXERCISES NEUROMUSCULAR RE-ED MANUAL THERAPY HOT/COLD PACK ELECTRIC STIMULATION UNATT PT RE-EVALUATION THERAPEUTIC EXERCISES NEUROMUSCULAR RE-ED MANUAL THERAPY HOT/COLD PACK ELECTRIC STIMULATION UNA THERAPEUTIC EXERCISES NEUROMUSCULAR RE-ED MANUAL THERAPY HOT/COLD PACK ELECTRIC STIMULATION UNATT THERAPEUTIC EXERCISES NEUROMUSCULAR RE-ED MANUAL THERAPY HOT/COLD PACK ELECTRIC STIMULATION UNATT THERAPEUTIC EXERCISES NEUROMUSCULAR RE-ED MANUAL THERAPY HOT/COLD PACK ELECTRIC STIMULATION UNA THERAPEUTIC EXERCISES NEUROMUSCULAR RE-ED MANUAL THERAPY HOT/COLD PACK ELECTRIC STIMULATION UNA THERAPEUTIC EXERCISES NEUROMUSCULAR RE-ED MANUAL THERAPY HOT/COLD PACK ELECTRIC STIMULATION UNATT THERAPEUTIC EXERCISES MANUAL THERAPY HOT/COLD PACK ELECTRIC STIMULATION UNATT THERAPEUTIC EXERCISES MANUAL THERAPY HOT/COLD PACK ELECTRIC STIMULATION UNA PT EVALUATION THERAPEUTIC EXERCISES MANUAL THERAPY HOT/COLD PACK ELECTRIC STIMULATION UNATT Advance Directives Directive Yes / No Effective Date File Name No Information Encounters Encounter Description Practice Location Reason(s) For Visit Diagnoses Date Provider Providers Copied on Encounter [facility], [address] [address], [place], [place], [id number], [place] tel:[phone] [place] No Information 1- 5 Muehl Negrito. [address] [place] [address], [address], [place], [place], [facility], [place]. tel: [phone] [address], [place], [place], [id number], [place] tel:[phone] [place] No Information 3201 5 Selena Eli. [address] [place] [address], [address], [place], [place], [facility], [place]. tel: [phone] [address], [place], [place], [id number], [place] tel:[phone] [place] No Information 8 5 Muehl Negrito. [address] [place] [address], [address], [place], [address], [place]. tel: [phone] [facility] [address], [place], [place], [id number], [place] tel: [phone] [place] No Information 1 5 Muehl Negrito. [address] [place] [address], [address], [place], [facility], [place]. tel: [phone] [facility] [address], [place], [place], [address], [place] tel:[phone] [place] No Information 6 5 Muehl Negrito. [address] [place] [address], [address], [place], [facility], [place]. tel: [phone] [facility] [address], [place], [place], [address], [place] tel:[phone] [place] No Information 201 5 Muehl Negrito. [address] [place] [address], [address], [place], [facility], [place]. tel: [phone] [address] [place] [address] [address], [place], [place], [address], [place] tel:[phone] [place] No Information Imtiaz-0 9-201 5 [place] Sreedhar. [address] [place] [address], [address], [place], [facility], [place]. tel: [phone] [place] [address] [address], [place], [place], [address], tel:[phone] [place] No Information Imtiaz-0 7-201 5 [place] Sreedhar. [address] [place] [address], [address], [place], [facility], [place]. tel: [phone] [address], [place], [place], [address], tel:[phone] [place] No Information Imtiaz-0 2-201 5 Muehl Negrito. [address] [place] [address], [address], [place], [facility], . tel: [phone] [address], [place], [place], [address], tel:[phone] [place] No Information Gaurav-3 0-201 5 Muehl Negrito. [address] [place] [address], [address], [place], [facility], [place]. tel: [phone] [address], [place], [place], [address], tel:[phone] [place] No Information Gaurav-2 4-201 5 Muehl Negrito. [address] [place] [address], [address], [place], [facility], [place]. tel: [phone] [place] [address] [address], [place], [address], [place] tel:[phone] [place] No Information Gaurav-2 2-201 5 Muehl Negrito. [address] [place] [address], [address], [place], [facility], [place]. tel: [phone] [address], [place], [place], [address], [place] tel:[phone] [place] No Information 9-201 5 Muehl Negrito. [address] [place] [address], [address], [place] [address], . [address]: [phone] [place], [place] [address] [address], [place], [place], [address], tel:[phone] [place] No Information 5-201 5 Muehl Negrito. [address] [place] [address], [address], [place], [facility], . tel: [phone] [place], [place] [address], [place], [place], [address], tel:[phone] [place] No Information 2-201 5 Muehl Negrito. [address] [place] [address], [address], [place] [address], . tel: [phone] [address], [place], [place], [address], tel:[phone] [place] No Information 201 5 Muehl Negrito. [address] [place] [address], [facility] [address], [place] [address], . tel: [phone] [address], [place], [address], tel:[phone] [place] No Information 9201 5 Muehl Negrito. [address] [place] [address], [facility] [address], [place] [address], . tel: [phone] [address], [place], [address], [phone] [place] Pain in joint involving shoulder region Gaurav-0 5-201 5 Muehl Negrito. [address] [place] [address], [address], [place] [address], . tel: [phone] Family History Family Member Type Diagnosis Age At Onset No Information Payers Payer name Insurance type Covered republican ID Nicho clayton(s) No Information Social History Type Description Quantity Date Captured Comments Sex Female Smoking Status No Information Chief Complaint And Reason For Visit No Information Reason For Referral Reason For Referral No Information History Of Present Illness Encounter Date Complaint History Of Prese nt Illness No Information Functional Status Date Functional Assessmen t No Information Instructions Date Instruction Additional Infor mation No Information Assessments Type Assessment Date No Information Patient Care Teams Name Effective Dates (start - stop) Status Members No Information
--- NOTE | 2025-05-07 12:38 | ECG_ITS ---
Test Date: 2025-05-07 13:05:57 Measurements Intervals [place] Rate: 61 P: 29 [place]: 169 QRS: -3 QRSD: 90 T: 32 QT: 433 QTc: 439 Interpretive Statements SINUS RHYTHM LEFT VENTRICULAR HYPERTROPHY MINIMAL Q WAVES- HIGH LATERAL LEADS BASELINE WANDER- V3 BORDERLINE ECG No previous ECG available for comparison Electronically Signed On 05-07-2025 17:20:31 CDT by [employer] D.O.
[2025-05-07 12:44] LABS: Basophils Absolute Auto 0.1 K/mm3 (0.0-0.1); Basophils Percent Auto 0.6 % (0.2-1.2); Eosinophils Absolute Auto 0.1 K/mm3 (0-0.3); Eosinophils Percent Auto 1.1 % (0-4.4); Hematocrit 40.7 % (37.0-47.0); Hemoglobin 13.7 g/dL (12.0-15.0); Immature Granulocyte Absolute 0.03 K/mm3 (0.00-0.031); Immature Granulocyte Percent A 0.4 % (0-0.5); Lymphocytes Absolute Auto 1.28 K/mm3 (0.9-3.2); Mean Corpuscular HGB Conc 33.7 g/dl (32-36); Mean Corpuscular Hemoglobin 30.6 pg (26-34); Mean Corpuscular Volume 90.8 fl (80-100); Mean Platelet Volume 9.7 fl (7.4-10.4); Monocytes Absolute Auto 0.6 K/mm3 (0.1-0.6); Monocytes Percent Auto 6.9 % (2.6-8.5); Neutrophils Absolute Auto 6.5 K/mm3 (1.3-6.7); Platelet Count Result 225 k/mm3 (150-375); Red Blood Count 4.48 M/mm3 (4.2-5.4); Red Cell Distribution Width 12.2 % (11.5-14.5); White Blood Count 8.5 K/mm3 (4.5-10.0)
[2025-05-07 12:54] LABS: Alanine Aminotransferase 27 U/L (6-35); Albumin Level 4.1 g/dL (3.5-5.1); Alkaline Phosphatase 77 U/L (38-126); Anion Gap 9 mmol/L (4-12); Aspartate Amino Transferase 30 U/L (14-36); Bilirubin,Total 0.8 mg/dL (0.2-1.3); Blood Urea Nitrogen 35 mg/dL (7-17); Calcium 9.5 mg/dL (8.4-10.2); Carbon Dioxide 24 mmol/L (22-30); Chloride 107 mmol/L (98-107); Estimated CRCL calculation 54 ml/min; Estimated Glomerular Filt Rate 45; Glucose 175 mg/dL (65-110); Potassium 4.5 mmol/L (3.4-5.0); Sodium 140 mmol/L (137-145)
[2025-05-07 12:57] LABS: INR 1.2; Partial Thromboplastin Time 25.8 Seconds (22.3-36.8); Prothrombin Time 14.7 Seconds (11.1-14.7)
[2025-05-07 13:16] VITALS: BP 135/75; PULSE 60; RESP 16; O2SAT 98
== END 2025-05-07 13:15 | disposition short-term general hospital (02) ==
PROVIDERS: Emergency Provider Emergency Medicine
DX: S72.331A Displaced oblique fracture of shaft of right femur, initial encounter for closed fracture (principal); M97.11XA Periprosthetic fracture around internal prosthetic right knee joint, initial encounter; I10 Essential (primary) hypertension; E11.9 Type 2 diabetes mellitus without complications; Z96.653 Presence of artificial knee joint, bilateral; I48.91 Unspecified atrial fibrillation; Z79.01 Long term (current) use of anticoagulants; Z79.84 Long term (current) use of oral hypoglycemic drugs; Z79.4 Long term (current) use of insulin; Z79.85 Long-term (current) use of injectable non-insulin antidiabetic drugs; I51.7 Cardiomegaly; W10.9XXA Fall (on) (from) unspecified stairs and steps, initial encounter
CPT/HCPCS: 36415; 73562; 80053; 85025; 85610; 85730; 86850; 86900; 86901; 93005; 99285; A9270